=== PATIENT | male | born 1935 ===

== ENCOUNTER 2018-09-06 00:08 | Inpatient (IN) | payer BC, MEDICARE, OTHER ==
--- NOTE | 2018-09-06 00:14 | C.PDOC ---
History Of Present Illness Patient presents to the ER after vomiting bright red blood. Denies fever, chills, nausea, or trauma. Patient vomited 50cc of blood clots in the ER. Time Seen by Provider: 09/06/18 00:13 History Per: Patient History/Exam Limitations: no limitations Onset/Duration Of Symptoms: Hrs Current Symptoms Are (Timing): Still Present Severity: Moderate Pain Scale Rating Of: 4 Quality Of Discomfort: Unable To Describe Associated Symptoms: Vomiting (Bright red blood). denies: Nausea, Other (Fever, chills) Recent travel outside of the [place]: No Past Medical History Reviewed: Historical Data, Nursing Documentation, Vital Signs - Medical History PMH: Arthritis, HIV, HTN, Hypercholesterolemia, Hyperlipidemia, Rheumatoid Arthritis Denies: Chronic Kidney Disease Surgical History: CABG - [facility] Procedures VACCINATION NEC (07/27/14) Family History: States: No Known Family Hx - Social History Hx Tobacco Use: No Hx Alcohol Use: No Hx Substance Use: No - Immunization History Hx Tetanus Toxoid Vaccination: No (unknown) Hx Influenza Vaccination: Yes Hx Pneumococcal Vaccination: Yes Review Of Systems Constitutional: Negative for: Fever, Chills Cardiovascular: Negative for: Chest Pain, Palpitations Respiratory: Negative for: Cough, Shortness of Breath Gastrointestinal: Positive for: Vomiting (Bright red blood). Negative for: Nausea Neurological: Negative for: Weakness, Numbness Physical Exam - Physical Exam Appears: Non-toxic Skin: Warm, Dry Head: Normacephalic Oral Mucosa: Moist Throat: Other (Blood in the oropharynx) Neck: Trachea Midline, Supple Chest: Symmetrical, No Tenderness Cardiovascular: Rhythm Regular Respiratory: No Rales, No Rhonchi, No Wheezing Gastrointestinal/Abdominal: Soft, No Tenderness, Other (Tympanic to percussion) Rectal: Other (Bright red blood, nontender) Neurological/Psych: Oriented x3 ED Course And Treatment - Laboratory Results Result Diagrams: 09/06/18 01:14 09/06/18 01:14 ECG: Interpreted By Me, Viewed By Me ECG Rhythm: Sinus Tachycardia, L BBB Interpretation Of ECG: Nonspecific ST/T changes Rate From EC O2 Sat by Pulse Oximetry: 98 (room air) Pulse Ox Interpretation: Normal - Radiology CXR: Interpreted by Me, Viewed By Me CXR Interpretation: Yes: Cardiomegaly, Other (cabg). No: Infiltrates, Fracture Progress Note: EKG, blood work, urinalysis, CXR, and occult blood test ordered. Protonix, zofran, and IV fluids administered. Disposition Discussed With : Francisco Richards Comment: accepted the pt on his service and took over the care at 1:49 AM Doctor Will See Patient In The: Hospital Counseled Patient/Family Regarding: Studies Performed, Diagnosis - Disposition Disposition: HOSPITALIZED Disposition Time: 00:14 Condition: GUARDED - POA Present On Arrival: Poor Glycemic Control - Clinical Impression Clinical Impression: Gastrointestinal hemorrhage, Abdominal pain, Renal insufficiency - Scribe Statement The provider has reviewed the documentation as recorded by the Scribe Serge Falk All medical record entries made by the Scribe were at my direction and personally dictated by me. I have reviewed the chart and agree that the record accurately reflects my personal performance of the history, physical exam, medical decision making, and the department course for this patient. I have also personally directed, reviewed, and agree with the discharge instructions and disposition.
[2018-09-06 00:15] VITALS: BMI 33.2
[2018-09-06] MEDS ORDERED: Sodium Chloride 0.9% 1,000 ML IV ONE (00:15)
[2018-09-06] MEDS ORDERED: Pantoprazole 80 MG in Sodium Chloride 0.9% 100 ML IV STA (00:15)
[2018-09-06] MEDS ORDERED: Sodium Chloride 0.9% 1,000 ML ONE (00:28)
[2018-09-06 01:18] LABS: EOS # 0.6 K/uL (0.0-0.7); NEUT # 9.7 K/uL (1.8-7.0)
[2018-09-06 01:20] LABS: BASO % 0.3 % (0.0-2.0); EOS % 4.4 % (0.0-4.0); HEMOGLOBIN 11.6 g/dL (12.0-18.0); LYMPH # 3.3 K/uL (1.0-4.3); LYMPH % 22.5 % (20.0-40.0); MEAN CELL VOLUME 94.7 fL (80.0-94.0); MEAN CORPUSCULAR HEMOGLOBIN 30.6 pg (27.0-31.0); MEAN CORPUSCULAR HGB CONC 32.3 g/dL (33.0-37.0); MEAN PLATELET VOLUME 9.6 fL (7.2-11.7); MONO % 6.6 % (0.0-10.0); NEUT % 66.2 % (50.0-75.0); RBC 3.77 Mil/uL (4.40-5.90); RED CELL DISTRIBUTION WIDTH 14.9 % (11.5-14.5); WHITE BLOOD COUNT 14.7 K/uL (4.8-10.8)
[2018-09-06 01:47] LABS: INR 1.2; PARTIAL THROMBOPLASTIN TIME 26.7 SECONDS (21-34); PROTHROMBIN TIME 13.2 SECONDS (9.7-12.2)
[2018-09-06 02:06] LABS: ALB/GLOB RATIO 1.4 (1.0-2.1); ALBUMIN 3.3 g/dL (3.5-5.0); CALCIUM 8.3 mg/dl (8.6-10.4)
[2018-09-06] MEDS: Pantoprazole 80 MG in Sodium Chloride 0.9% 100 ML IVP SCH ×3 (02:10→21:06)
[2018-09-06] MEDS: Dextrose 5%/0.45% NS 1,000 ML IV SCH ×4 (02:20→21:06)
[2018-09-06] MEDS ORDERED: Iodixanol 320 MG/ML 100 ML BOTTLE IV ONE (02:44)
--- NOTE | 2018-09-06 09:34 | RAD ---
Date of service: 09/06/2018 HISTORY: GI Bleeding COMPARISON: None available. TECHNIQUE: 1 view obtained. FINDINGS: LUNGS: No active pulmonary disease. PLEURA: No significant pleural effusion identified, no pneumothorax apparent. CARDIOVASCULAR: Aortic atherosclerotic calcification present. Status post median sternotomy and CABG. No pulmonary vascular congestion. OSSEOUS STRUCTURES: No significant abnormalities. VISUALIZED UPPER ABDOMEN: Normal. OTHER FINDINGS: None. IMPRESSION: No active disease.
[2018-09-06] MEDS ORDERED: EPZICOM PO SCH (10:00)
[2018-09-06] MEDS ORDERED: Abacavir/Lamivudine 600 mg-300 mg Tab PO SCH (10:00)
[2018-09-06] MEDS: Metoprolol Succinate 50 mg XL Tab PO SCH ×2 (10:45→17:10)
[2018-09-06] MEDS ORDERED: Pantoprazole 80 MG in Sodium Chloride 0.9% 100 ML IVP SCH (11:00)
[2018-09-06 11:08] LABS: URINE BILIRUBIN NEGATIVE (NEGATIVE); URINE BLOOD NEGATIVE (NEGATIVE); URINE CLARITY Clear (Clear); URINE COLOR Straw (YELLOW); URINE GLUCOSE (UA) NORMAL (Normal); URINE LEUKOCYTE ESTERASE NEG Leu/uL (Negative); URINE PROTEIN NEGATIVE (NEGATIVE); URINE UROBILINOGEN NORMAL mg/dL (0.2-1.0)
--- NOTE | 2018-09-06 11:53 | CT ---
PROCEDURE: CT Abdomen and Pelvis without Oral or IV contrast. HISTORY: upper and lower gi bleed COMPARISON: Abdominal ultrasound performed 07/26/14 TECHNIQUE: Contiguous axial images of the abdomen and pelvis. No oral or IV contrast administered. Coronal and Sagittal reformats generated and reviewed. Radiation dose: Total exam DLP = 905.41 mGy-cm. This CT exam was performed using one or more of the following dose reduction techniques: Automated exposure control, adjustment of the mA and/or kV according to patient size, and/or use of iterative reconstruction technique. FINDINGS: There is limited evaluation of the solid organs without the administration of IV contrast. LOWER THORAX: Partially imaged subtle nodular/ground-glass infiltrate in the right middle lobe. LIVER: Unremarkable. GALLBLADDER AND BILE DUCTS: Cholelithiasis. PANCREAS: Atrophy. SPLEEN: Unremarkable. ADRENALS: Unremarkable. KIDNEYS AND URETERS: No hydronephrosis or obstructing renal calculus. Left lower pole renal cyst measures 2.8 cm. BLADDER: The urinary bladder appears unremarkable. REPRODUCTIVE: The prostate gland measures approximately 4.0 x 4.5 cm. APPENDIX: No secondary signs of acute appendicitis. BOWEL: The stomach is incompletely distended and contains high density material within its lumen, presumably blood products; correlate clinically. Lack of oral contrast limits evaluation for bowel pathology. The bowel loops appear within normal limits of caliber without evidence of intestinal obstruction. Diverticulosis without CT evidence of acute diverticulitis. PERITONEUM: Mild mesenteric inflammatory stranding, nonspecific. No significant free fluid. No definite free air. LYMPH NODES: No bulky lymphadenopathy identified. VASCULATURE: Atherosclerotic calcifications of the aorta and branches. No aortic aneurysm. BONES: Osseous demineralization. Degenerative changes. 8 mm anterolisthesis of L4 on L5. OTHER FINDINGS: None. IMPRESSION: The stomach is incompletely distended and contains high density material within its lumen, presumably blood products; correlate clinically. Cholelithiasis. Diverticulosis without CT evidence of acute diverticulitis. Enlarged prostate gland. Recommend correlation with PSA. Mild nonspecific mesenteric inflammatory stranding. 2.8 cm left renal cyst. Additional incidental findings as above. Preliminary impression was provided by [facility].
[2018-09-06 18:14] LABS: MEAN CELL VOLUME 92.8 fL (80.0-94.0); MEAN CORPUSCULAR HEMOGLOBIN 31.4 pg (27.0-31.0); MEAN CORPUSCULAR HGB CONC 33.8 g/dL (33.0-37.0); MEAN PLATELET VOLUME 9.7 fL (7.2-11.7); RBC 3.1 Mil/uL (4.40-5.90); RED CELL DISTRIBUTION WIDTH 14.7 % (11.5-14.5); WHITE BLOOD COUNT 9.8 K/uL (4.8-10.8)
[2018-09-06 18:23] LABS: HEMOGLOBIN 9.7 g/dL (12.0-18.0)
--- NOTE | 2018-09-06 22:14 | CP.PCM.CON ---
History of Present Illness - History of Present Illness History of Present Illness: Patient presents to the ER after vomiting bright red blood. Denies fever, chills, nausea, or trauma. Patient vomited 50cc of blood clots in the ER. Referred or ID eval for antiviral rx' denies fever or chills - Medical History PMH: Arthritis, HIV, HTN, Hypercholesterolemia, Hyperlipidemia, Rheumatoid Arthritis Denies: Chronic Kidney Disease Surgical History: CABG Review of Systems - Review of Systems All systems: reviewed and no additional remarkable complaints except - Constitutional Constitutional: As Per HPI - EENT Eyes: absent: As Per HPI, Blind Spots, Blurred Vision, Change in Vision, Decreased Night Vision, Diplopia, Discharge, Dry Eye, Exophthalmos, Floaters, Irritation, Itchy Eyes, Loss of Peripheral Vision, Pain, Photophobia, Requires Corrective Lenses, Sees Flashes, Spots in Vision, Tunnel Vision, Other Visual Disturbances, Loss of Vision, Other Ears: absent: As Per HPI, Decreased Hearing, Ear Discharge, Ear Pain, Tinnitus, Abnormal Hearing, Disequilibrium, Dizziness, Other Nose/Mouth/Throat: absent: As Per HPI, Epistaxis, Nasal Congestion, Nasal Discharge, Nasal Obstruction, Nasal Trauma, Nose Pain, Post Nasal Drip, Sinus Pain, Sinus Pressure, Bleeding Gums, Change in Voice, Dental Pain, Dry Mouth, Dysphagia, Halitosis, Hoarsness, Lip Swelling, Mouth Lesions, Mouth Pain, Odynophagia, Sore Throat, Throat Swelling, Tongue Swelling, Facial Pain, Neck Pain, Neck Mass, Other - Cardiovascular Cardiovascular: As Per HPI - Respiratory Respiratory: absent: As Per HPI, Cough, Dyspnea, Hemoptysis, Dyspnea on Exertion, Wheezing, Snoring, Stridor, Pain on Inspiration, Chest Congestion, Excessive Mucous Production, Change in Mucous Color, Pain with Coughing, Other - Gastrointestinal Gastrointestinal: As Per HPI - Genitourinary Genitourinary: absent: As Per HPI, Change in Urinary Stream, Difficulty Urinating, Dysuria, Flank Pain, Hematuria, Pyuria, Nocturia, Urinary Incontinence, Urinary Frequency, Urinary Hesitance, Urinary Urgency, Voiding Freq/Small Amts, Freq UTI, Hx Renal/Bladder Calculi, Hx /Renal Surgery, Bladder Distension, Other - Musculoskeletal Musculoskeletal: absent: As Per HPI, Abnormal Gait, Arthralgias, Atrophy, Back Pain, Deformity, Joint Swelling, Limited Range of Motion, Loss of Height, Muscle Cramps, Muscle Weakness, Myalgias, Neck Pain, Numbness, Radiating Pain into Limb, Stiffness, Tingling, Other - Neurological Neurological: absent: As Per HPI, Abnormal Gait, Abnormal Hearing, Abnormal Movements, Abnormal Speech, Behavioral Changes, Burning Sensations, Confusion, Convulsions, Disequilibrium, Dizziness, Numbness, Focal Weakness, Frequent Falls, Headaches, Lack of Coordination, Loss of Vision, Memory Loss, Paresthesias, Radicular Pain, Restless Legs, Sensory Deficit, Syncope, Tingling, Tremor, Vertigo, Weakness, Other Visual Disturbances, Other - Psychiatric Psychiatric: absent: As Per HPI, Abnormal Sleep Pattern, Anhedonia, Anxiety, Auditory Hallucinations, Behavioral Changes, Change in Appetite, Change in Libido, Confusion, Depression, Difficulty Concentrating, Hallucinations, Homicidal Ideation, Hopelessness, Irritability, Memory Loss, Mood Swings, Panic Attacks, Paranoia, Suicidal Ideation, Visual Hallucinations, Tactile Hallucinations, Other - Endocrine Endocrine: absent: As Per HPI, Change in Body Appearance, Change in Libido, Cold Intolorance, Deepening of Voice, Excessive Sweating, Fatigue, Flushing, Heat Intolorance, Increase in Ring/Shoe/Hat Size, Palpitations, Polydipsia, Polyphagia, Polyuria, Other - Hematologic/Lymphatic Hematologic: absent: As Per HPI, Easy Bleeding, Easy Bruising, Lymphadenopathy, Other Past Patient History - Past Medical History & Family History Past Medical History?: Yes - Past Social History Smoking Status: Never Smoked - CARDIAC Hx Hypercholesterolemia: Yes Hx Hypertension: Yes - PULMONARY Hx Respiratory Disorders: No - NEUROLOGICAL Hx Neurological Disorder: No - HEENT Hx Cataracts: Yes (b/l) - RENAL Hx Chronic Kidney Disease: No - ENDOCRINE/METABOLIC Hx Endocrine Disorders: No - HEMATOLOGICAL/ONCOLOGICAL Hx Human Immunodeficiency Virus (HIV): Yes - INTEGUMENTARY Hx Dermatological Problems: No - MUSCULOSKELETAL/RHEUMATOLOGICAL Hx Arthritis: Yes - GASTROINTESTINAL Hx Gastrointestinal Disorders: No - GENITOURINARY/GYNECOLOGICAL Hx Genitourinary Disorders: No - PSYCHIATRIC Hx Substance Use: No - SURGICAL HISTORY Hx Coronary Artery Bypass Graft: Yes - ANESTHESIA Hx Anesthesia: Yes Hx Anesthesia Reactions: No Hx Malignant Hyperthermia: No Meds Allergies/Adverse Reactions: Allergies Allergy/AdvReac Type Severity Reaction Status Date / Time No Known Allergies Allergy Verified 09/06/18 00:29 - Medications Medications: Current Medications Abacavir/Lamivudine (Epzicom) 1 tab PO DAILY [facility]; Protocol Last Admin: 09/06/18 10:45 Dose: 1 tab Fosamprenavir Calcium (Lexiva) 700 mg PO BID [facility]; Protocol Last Admin: 09/06/18 19:31 Dose: 700 mg Gabapentin (Neurontin) 100 mg PO TID [facility] Last Admin: 09/06/18 17:10 Dose: 100 mg Hydrochlorothiazide (Hydrodiuril) 25 mg PO DAILY [facility] Last Admin: 09/06/18 10:45 Dose: 25 mg Pantoprazole Sodium 80 mg/ (Sodium Chloride) 100 mls @ 10 mls/hr IVP .Q10H [facility] Last Admin: 09/06/18 21:06 Dose: 10 mls/hr Dextrose/Sodium Chloride (Dextrose 5%/0.45% Ns 1000 Ml) 1,000 mls @ 80 mls/hr IV .[id number] [facility] Last Admin: 09/06/18 21:06 Dose: 80 mls/hr Losartan Potassium (Cozaar) 100 mg PO DAILY [facility] Last Admin: 09/06/18 10:44 Dose: 100 mg Metoprolol Succinate (Toprol Xl) 50 mg PO BID [facility] Last Admin: 09/06/18 17:10 Dose: 50 mg Ritonavir (Norvir) 100 mg PO DAILY [facility]; Protocol Last Admin: 09/06/18 11:00 Dose: 100 mg Rosuvastatin Calcium (Crestor) 5 mg PO HS [facility] Last Admin: 09/06/18 21:04 Dose: 5 mg Physical Exam - Constitutional Appears: Non-toxic, No Acute Distress, Chronically Ill - Head Exam Head Exam: ATRAUMATIC, NORMAL INSPECTION, NORMOCEPHALIC - Eye Exam Eye Exam: EOMI, Normal appearance, PERRL Pupil Exam: NORMAL ACCOMODATION, PERRL - ENT Exam ENT Exam: Mucous Membranes Moist, Normal Exam - Neck Exam Neck exam: Positive for: Normal Inspection - Respiratory Exam Respiratory Exam: Clear to Auscultation Bilateral, NORMAL BREATHING PATTERN - Cardiovascular Exam Cardiovascular Exam: REGULAR RHYTHM - GI/Abdominal Exam GI & Abdominal Exam: Normal Bowel Sounds, Soft. absent: Tenderness - Rectal Exam Rectal Exam: Deferred - Exam Exam: NORMAL INSPECTION - Extremities Exam Extremities exam: Positive for: pedal edema - Back Exam Back exam: NORMAL INSPECTION - Neurological Exam Neurological exam: Alert, CN II-XII Intact, Normal Gait, Oriented x3, Reflexes Normal - Psychiatric Exam Psychiatric exam: Depressed - Skin Skin Exam: Dry, Intact, Normal Color, Warm Results - Vital Signs Recent Vital Signs: Last Vital Signs Temp 98.5 F 09/06/18 17:28 Pulse 81 09/06/18 19:55 Resp 18 09/06/18 17:28 BP 117/74 09/06/18 17:28 Pulse Ox 100 09/06/18 17:28 - Labs Result Diagrams: 09/06/18 17:38 09/06/18 01:14 Labs: Laboratory Results - last 24 hr 09/06/18 09/06/18 09/06/18 01:14 01:14 01:14 WBC 14.7 H RBC 3.77 L Hgb 11.6 L D Hct 35.7 MCV 94.7 H D MCH 30.6 MCHC 32.3 L RDW 14.9 H Plt Count 209 MPV 9.6 Neut % (Auto) 66.2 Lymph % (Auto) 22.5 [place] % (Auto) 6.6 Eos % (Auto) 4.4 H Baso % (Auto) 0.3 Neut # (Auto) 9.7 H Lymph # (Auto) 3.3 [place] # (Auto) 1.0 H Eos # (Auto) 0.6 Baso # (Auto) 0.0 PT 13.2 H INR 1.2 APTT 26.7 Sodium 140 Potassium 3.9 Chloride 109 H Carbon Dioxide 18 L Anion Gap 17 BUN 85 H Creatinine 2.1 H Est GFR ( Amer) 37 Est GFR (Non-Af Amer) 30 Random Glucose 223 H D Calcium 8.3 L Total Bilirubin 0.3 AST 27 ALT 28 Alkaline Phosphatase 69 Total Protein 5.7 L Albumin 3.3 L Globulin 2.3 Albumin/Globulin Ratio 1.4 Urine Color Urine Clarity Urine pH Ur Specific [place] Urine Protein Urine Glucose (UA) Urine Ketones Urine Blood Urine Nitrate Urine Bilirubin Urine Urobilinogen Ur Leukocyte Esterase Urine WBC (Auto) Urine RBC (Auto) Stool Occult Blood Blood Type Antibody Screen 09/06/18 09/06/18 09/06/18 01:34 01:42 10:49 WBC RBC Hgb Hct MCV MCH MCHC RDW Plt Count MPV Neut % (Auto) Lymph % (Auto) [place] % (Auto) Eos % (Auto) Baso % (Auto) Neut # (Auto) Lymph # (Auto) [place] # (Auto) Eos # (Auto) Baso # (Auto) PT INR APTT Sodium Potassium Chloride Carbon Dioxide Anion Gap BUN Creatinine Est GFR ( Amer) Est GFR (Non-Af Amer) Random Glucose Calcium Total Bilirubin AST ALT Alkaline Phosphatase Total Protein Albumin Globulin Albumin/Globulin Ratio Urine Color Straw Urine Clarity Clear Urine pH 5.0 Ur Specific [place] 1.012 Urine Protein Negative Urine Glucose (UA) Normal Urine Ketones Negative Urine Blood Negative Urine Nitrate Negative Urine Bilirubin Negative Urine Urobilinogen Normal Ur Leukocyte Esterase Neg Urine WBC (Auto) < 1 Urine RBC (Auto) < 1 Stool Occult Blood Positive H Blood Type AB POSITIVE Antibody Screen Negative 09/06/18 17:38 WBC 9.8 RBC 3.10 L Hgb 9.7 L Hct 28.7 L MCV 92.8 MCH 31.4 H MCHC 33.8 RDW 14.7 H Plt Count 181 MPV 9.7 Neut % (Auto) Lymph % (Auto) [place] % (Auto) Eos % (Auto) Baso % (Auto) Neut # (Auto) Lymph # (Auto) [place] # (Auto) Eos # (Auto) Baso # (Auto) PT INR APTT Sodium Potassium Chloride Carbon Dioxide Anion Gap BUN Creatinine Est GFR ( Amer) Est GFR (Non-Af Amer) Random Glucose Calcium Total Bilirubin AST ALT Alkaline Phosphatase Total Protein Albumin Globulin Albumin/Globulin Ratio Urine Color Urine Clarity Urine pH Ur Specific [place] Urine Protein Urine Glucose (UA) Urine Ketones Urine Blood Urine Nitrate Urine Bilirubin Urine Urobilinogen Ur Leukocyte Esterase Urine WBC (Auto) Urine RBC (Auto) Stool Occult Blood Blood Type Antibody Screen Assessment & Plan (1) HIV (human immunodeficiency virus infection) Status: Acute (2) Abdominal pain Status: Acute (3) Gastrointestinal hemorrhage Status: Acute (4) Renal insufficiency Status: Acute (5) Dehydration Status: Acute (6) Dizziness Status: Acute - Assessment and Plan (Free Text) Assessment: cont HAART rx check T cells
[2018-09-06 22:19] LABS: HEMOGLOBIN 9.6 g/dL (12.0-18.0); MEAN CELL VOLUME 94.4 fL (80.0-94.0); MEAN CORPUSCULAR HEMOGLOBIN 31.5 pg (27.0-31.0); MEAN CORPUSCULAR HGB CONC 33.3 g/dL (33.0-37.0); MEAN PLATELET VOLUME 9.4 fL (7.2-11.7); RBC 3.05 Mil/uL (4.40-5.90); RED CELL DISTRIBUTION WIDTH 15.2 % (11.5-14.5)
--- NOTE | 2018-09-06 23:50 | CP.PCM.HP ---
Present on Admission - Present on Admission Any Indicators Present on Admission: No Past Patient History - Past Medical History & Family History Past Medical History?: Yes - Past Social History Smoking Status: Never Smoked - CARDIAC Hx Hypercholesterolemia: Yes Hx Hypertension: Yes - PULMONARY Hx Respiratory Disorders: No - NEUROLOGICAL Hx Neurological Disorder: No - HEENT Hx Cataracts: Yes (b/l) - RENAL Hx Chronic Kidney Disease: No - ENDOCRINE/METABOLIC Hx Endocrine Disorders: No - HEMATOLOGICAL/ONCOLOGICAL Hx Human Immunodeficiency Virus (HIV): Yes - INTEGUMENTARY Hx Dermatological Problems: No - MUSCULOSKELETAL/RHEUMATOLOGICAL Hx Arthritis: Yes - GASTROINTESTINAL Hx Gastrointestinal Disorders: No - GENITOURINARY/GYNECOLOGICAL Hx Genitourinary Disorders: No - PSYCHIATRIC Hx Substance Use: No - SURGICAL HISTORY Hx Coronary Artery Bypass Graft: Yes - ANESTHESIA Hx Anesthesia: Yes Hx Anesthesia Reactions: No Hx Malignant Hyperthermia: No Meds Allergies/Adverse Reactions: Allergies Allergy/AdvReac Type Severity Reaction Status Date / Time No Known Allergies Allergy Verified 09/06/18 00:29 Results - Vital Signs Recent Vital Signs: Last Vital Signs Temp 98.5 F 09/06/18 17:28 Pulse 81 09/06/18 19:55 Resp 18 09/06/18 17:28 BP 117/74 09/06/18 17:28 Pulse Ox 100 09/06/18 17:28 - Labs Result Diagrams: 09/06/18 22:00 09/06/18 01:14 Labs: Laboratory Results - last 24 hr 09/06/18 09/06/18 09/06/18 01:14 01:14 01:14 WBC 14.7 H RBC 3.77 L Hgb 11.6 L D Hct 35.7 MCV 94.7 H D MCH 30.6 MCHC 32.3 L RDW 14.9 H Plt Count 209 MPV 9.6 Neut % (Auto) 66.2 Lymph % (Auto) 22.5 [place] % (Auto) 6.6 Eos % (Auto) 4.4 H Baso % (Auto) 0.3 Neut # (Auto) 9.7 H Lymph # (Auto) 3.3 [place] # (Auto) 1.0 H Eos # (Auto) 0.6 Baso # (Auto) 0.0 PT 13.2 H INR 1.2 APTT 26.7 Sodium 140 Potassium 3.9 Chloride 109 H Carbon Dioxide 18 L Anion Gap 17 BUN 85 H Creatinine 2.1 H Est GFR ( Amer) 37 Est GFR (Non-Af Amer) 30 Random Glucose 223 H D Calcium 8.3 L Total Bilirubin 0.3 AST 27 ALT 28 Alkaline Phosphatase 69 Total Protein 5.7 L Albumin 3.3 L Globulin 2.3 Albumin/Globulin Ratio 1.4 Urine Color Urine Clarity Urine pH Ur Specific [place] Urine Protein Urine Glucose (UA) Urine Ketones Urine Blood Urine Nitrate Urine Bilirubin Urine Urobilinogen Ur Leukocyte Esterase Urine WBC (Auto) Urine RBC (Auto) Stool Occult Blood Blood Type Antibody Screen 09/06/18 09/06/18 09/06/18 01:34 01:42 10:49 WBC RBC Hgb Hct MCV MCH MCHC RDW Plt Count MPV Neut % (Auto) Lymph % (Auto) [place] % (Auto) Eos % (Auto) Baso % (Auto) Neut # (Auto) Lymph # (Auto) [place] # (Auto) Eos # (Auto) Baso # (Auto) PT INR APTT Sodium Potassium Chloride Carbon Dioxide Anion Gap BUN Creatinine Est GFR ( Amer) Est GFR (Non-Af Amer) Random Glucose Calcium Total Bilirubin AST ALT Alkaline Phosphatase Total Protein Albumin Globulin Albumin/Globulin Ratio Urine Color Straw Urine Clarity Clear Urine pH 5.0 Ur Specific [place] 1.012 Urine Protein Negative Urine Glucose (UA) Normal Urine Ketones Negative Urine Blood Negative Urine Nitrate Negative Urine Bilirubin Negative Urine Urobilinogen Normal Ur Leukocyte Esterase Neg Urine WBC (Auto) < 1 Urine RBC (Auto) < 1 Stool Occult Blood Positive H Blood Type AB POSITIVE Antibody Screen Negative 09/06/18 09/06/18 17:38 22:00 WBC 9.8 11.0 H RBC 3.10 L 3.05 L Hgb 9.7 L 9.6 L Hct 28.7 L 28.8 L MCV 92.8 94.4 H MCH 31.4 H 31.5 H MCHC 33.8 33.3 RDW 14.7 H 15.2 H Plt Count 181 177 MPV 9.7 9.4 Neut % (Auto) Lymph % (Auto) [place] % (Auto) Eos % (Auto) Baso % (Auto) Neut # (Auto) Lymph # (Auto) [place] # (Auto) Eos # (Auto) Baso # (Auto) PT INR APTT Sodium Potassium Chloride Carbon Dioxide Anion Gap BUN Creatinine Est GFR ( Amer) Est GFR (Non-Af Amer) Random Glucose Calcium Total Bilirubin AST ALT Alkaline Phosphatase Total Protein Albumin Globulin Albumin/Globulin Ratio Urine Color Urine Clarity Urine pH Ur Specific [place] Urine Protein Urine Glucose (UA) Urine Ketones Urine Blood Urine Nitrate Urine Bilirubin Urine Urobilinogen Ur Leukocyte Esterase Urine WBC (Auto) Urine RBC (Auto) Stool Occult Blood Blood Type Antibody Screen
[2018-09-07] MEDS: Dextrose 5%/0.45% NS 1,000 ML IV SCH ×3 (04:29→15:56)
[2018-09-07] MEDS: Pantoprazole 80 MG in Sodium Chloride 0.9% 100 ML IVP SCH ×2 (08:20→19:24)
[2018-09-07] MEDS: Metoprolol Succinate 50 mg XL Tab PO SCH ×2 (11:00→18:31)
[2018-09-07] MEDS ORDERED: Propofol 10 mg/ml Inj (20 ML) ONE (11:04)
--- NOTE | 2018-09-07 11:11 | HP ---
CHIEF COMPLAINT: Vomiting blood with generalized weakness. HISTORY OF PRESENT ILLNESS: This is an 83-year-old male with history of acquired immunodeficiency syndrome, on HAART therapy who is compliant with his diet, medication, and followup. The patient is well known to me with history of coronary artery disease, diabetes, hypertension, hyperlipidemia, and osteoarthritis, who is compliant with his diet, medication, and followup. The patient is a poor historian. He presented to emergency room with vomiting bright red blood, epigastric pain, nausea, vomiting, generalized weakness, diaphoresis, and dizziness. The patient denies any nonsteroidal antiinflammatory abuse. The patient has bilateral knee pain, hip pain. He denies any tingling, numbness, or paraesthesia. He denies any polyuria, polydipsia, polyphagia. He denies any hematuria or pyuria. He denies any sneezing, itchy eyes, itchy nose. There is no history of cough or sore throat. PAST MEDICAL HISTORY: Diabetes, hypertension, hyperlipidemia, coronary artery disease. SOCIAL HISTORY: Nonsmoker. Non-ETOH user. CURRENT MEDICATIONS: He is on ritonavir, Pravachol, Toprol-XL, Diovan, gabapentin, , Uloric, Pepcid, colchicine, Norvasc. PHYSICAL EXAMINATION: GENERAL: An elderly male. He is not in distress. He is complaining of epigastric pain with nausea and vomiting. VITAL SIGNS: Blood pressure 170/74, pulse 92, respiratory rate 16, and temperature 98.5. When he moves, his heart rate goes up. SKIN: Senile turgor. No bruises. No purpura. No petechia. HEENT: Atraumatic, normocephalic. Negative pallor. Negative jaundice. Extraocular movements are intact. NECK: Supple. No JVD. No lymph nodes. No thyromegaly. No carotid bruit. CHEST WALL: Bilateral symmetrical expansion noted. LUNGS: Clear. No rales. No rhonchi. CARDIOVASCULAR SYSTEM: PMI not localized. S1, S2, regular. ABDOMEN: Soft, nontender. Bowel sounds are positive. RECTAL: Positive occult blood. EXTREMITIES: No clubbing, cyanosis, or edema. CENTRAL NERVOUS SYSTEM: Awake, alert, oriented x3. Cranial nerves II-XII are normal. Power 5/5 x4. Plantars are downgoing. ASSESSMENT: 1. Gastrointestinal bleed, rule out gastritis versus peptic ulcer disease versus colitis versus colon polyps. 2. Acquired immunodeficiency syndrome. 3. Hypertension. 4. Diabetes mellitus. PLAN: Admit. Detailed orders are written. Seen and examined. Francisco Richards MD
[2018-09-07] MEDS ORDERED: Peg-Electrolyte Oral Soln 4L (Golytely) PO ONE (13:00)
[2018-09-07 13:56] LABS: HEMOGLOBIN 8.6 g/dL (12.0-18.0); MEAN CELL VOLUME 94.4 fL (80.0-94.0); MEAN CORPUSCULAR HEMOGLOBIN 32.3 pg (27.0-31.0); MEAN CORPUSCULAR HGB CONC 34.2 g/dL (33.0-37.0); MEAN PLATELET VOLUME 9.6 fL (7.2-11.7); RBC 2.67 Mil/uL (4.40-5.90); RED CELL DISTRIBUTION WIDTH 15.1 % (11.5-14.5); WHITE BLOOD COUNT 9.8 K/uL (4.8-10.8)
[2018-09-07] MEDS ORDERED: Bisacodyl 5mg EC Tab PO ONE (17:00)
[2018-09-07] MEDS ORDERED: Lactated Ringer's 1,000 ML IV SCH (18:15)
--- NOTE | 2018-09-07 18:35 | CP.PCM.CON ---
<Richie Mota - Last Filed: 09/07/18 18:28> History of Present Illness - History of Present Illness History of Present Illness: Richie Mota PGY1 Consult note for Dr. Wills Patient is an 83yo M with PMH CAD, HIV, HTN, Hyperlipidemia, Arthritis presenting with hemoptysis. ICU consulted for GI bleed. Patient reports eating outside food on tuesday night and subsequently experiencing nausea and 3 episodes of bloody vomit that he described as bright red. He denies prior hi story of this. He denies blood in the stool prior to coming to hospital. He endorses history of acid reflux and abdominal pain. He denies chest pain, shortness of breath, fever, chills, sick contacts or recent travel. He reports some dizziness at this time. He currently denies any nausea or vomiting. EGD was performed today, showing gastritis. Patient had large bowel movement with black stool. SxH: bypass, R knee SocH: denies etoh, tobacco, or recreational drug use Allergies: NKDA Meds: as per EMR PMD: Maurice Review of Systems - Review of Systems Review of Systems: 12 point ROS completed and negative other than what is stated in HPI Past Patient History - Past Medical History & Family History Past Medical History?: Yes - Past Social History Smoking Status: Never Smoked - CARDIAC Hx Hypercholesterolemia: Yes Hx Hypertension: Yes - PULMONARY Hx Respiratory Disorders: No - NEUROLOGICAL Hx Neurological Disorder: No - HEENT Hx Cataracts: Yes (b/l) - RENAL Hx Chronic Kidney Disease: No - ENDOCRINE/METABOLIC Hx Endocrine Disorders: No - HEMATOLOGICAL/ONCOLOGICAL Hx Human Immunodeficiency Virus (HIV): Yes - INTEGUMENTARY Hx Dermatological Problems: No - MUSCULOSKELETAL/RHEUMATOLOGICAL Hx Arthritis: Yes - GASTROINTESTINAL Hx Gastrointestinal Disorders: No - GENITOURINARY/GYNECOLOGICAL Hx Genitourinary Disorders: No - PSYCHIATRIC Hx Substance Use: No - SURGICAL HISTORY Hx Coronary Artery Bypass Graft: Yes - ANESTHESIA Hx Anesthesia: Yes Hx Anesthesia Reactions: No Hx Malignant Hyperthermia: No Meds Allergies/Adverse Reactions: Allergies Allergy/AdvReac Type Severity Reaction Status Date / Time No Known Allergies Allergy Verified 09/06/18 00:29 - Medications Medications: Current Medications Abacavir Sulfate (Ziagen) 600 mg PO DAILY [facility]; Protocol Fosamprenavir Calcium (Lexiva) 700 mg PO BID [facility]; Protocol Last Admin: 09/07/18 11:00 Dose: Not Given Gabapentin (Neurontin) 100 mg PO TID [facility] Last Admin: 09/07/18 13:52 Dose: 100 mg Hydrochlorothiazide (Hydrodiuril) 25 mg PO DAILY [facility] Last Admin: 09/07/18 11:00 Dose: Not Given Lactated Ringer's (Lactated Ringer's) 1,000 mls @ 100 mls/hr IV .Q10H [facility] Lamivudine (Epivir) 100 mg PO DAILY [facility]; Protocol Losartan Potassium (Cozaar) 100 mg PO DAILY [facility] Last Admin: 09/07/18 11:00 Dose: Not Given Metoclopramide HCl (Reglan) 5 mg IVP Q6H [facility] Stop: 09/11/18 12:01 Last Admin: 09/07/18 13:00 Dose: 5 mg Metoprolol Succinate (Toprol Xl) 50 mg PO BID [facility] Last Admin: 09/07/18 11:00 Dose: Not Given Pantoprazole Sodium (Protonix Inj) 40 mg IVP Q12H [facility] Ritonavir (Norvir) 100 mg PO DAILY [facility]; Protocol Last Admin: 09/07/18 11:00 Dose: Not Given Rosuvastatin Calcium (Crestor) 5 mg PO HS [facility] Last Admin: 09/06/18 21:04 Dose: 5 mg Physical Exam - Constitutional Appears: Well, No Acute Distress - Head Exam Head Exam: ATRAUMATIC, NORMOCEPHALIC - Eye Exam Eye Exam: EOMI, Normal appearance, PERRL Pupil Exam: NORMAL ACCOMODATION - ENT Exam ENT Exam: Mucous Membranes Moist - Neck Exam Neck exam: Positive for: Normal Inspection - Respiratory Exam Respiratory Exam: Clear to Auscultation Bilateral, NORMAL BREATHING PATTERN. absent: Rales, Rhonchi, Wheezes - Cardiovascular Exam Cardiovascular Exam: REGULAR RHYTHM, +S1, +S2. absent: Gallop, Rubs, Systolic Murmur - GI/Abdominal Exam GI & Abdominal Exam: Normal Bowel Sounds, Soft. absent: Distended, Tenderness - Extremities Exam Extremities exam: Positive for: normal inspection. Negative for: pedal edema - Back Exam Back exam: NORMAL INSPECTION - Neurological Exam Neurological exam: Alert, CN II-XII Intact, Normal Gait, Oriented x3, Reflexes Normal - Psychiatric Exam Psychiatric exam: Normal Affect, Normal Mood - Skin Skin Exam: Intact, Normal Color Results - Vital Signs Recent Vital Signs: Last Vital Signs Temp 97.7 F 09/07/18 18:14 Pulse 77 09/07/18 18:20 Resp 9 L 09/07/18 18:20 BP 138/57 L 09/07/18 18:14 Pulse Ox 98 09/07/18 18:20 - Labs Result Diagrams: 09/07/18 13:51 09/06/18 01:14 Labs: Laboratory Results - last 24 hr 09/06/18 09/06/18 09/07/18 01:42 22:00 06:35 WBC 11.0 H RBC 3.05 L Hgb 9.6 L Hct 28.8 L MCV 94.4 H MCH 31.5 H MCHC 33.3 RDW 15.2 H Plt Count 177 MPV 9.4 POC Glucose (mg/dL) 134 H HIV 1&2 Antibody Screen Blood Type AB POSITIVE Blood Type Confirm AB POSITIVE Antibody Screen Negative 09/07/18 09/07/18 08:05 13:51 WBC 9.8 RBC 2.67 L Hgb 8.6 L Hct 25.2 L MCV 94.4 H MCH 32.3 H MCHC 34.2 RDW 15.1 H Plt Count 165 MPV 9.6 POC Glucose (mg/dL) HIV 1&2 Antibody Screen Reactive Blood Type Blood Type Confirm Antibody Screen Assessment & Plan - Assessment and Plan (Free Text) Assessment: Patient is an 83yo M with PMH CAD, HIV, HTN, Hyperlipidemia, Arthritis presenting with hemoptysis. ICU consulted for GI bleed. EGD performed 09/06 showing gastritis. Colonoscopy scheduled for 09/07, patient currently on bowel prep. Plan: Neuro: - AAOx3 - GSC 15 - no focal deficits Cardiovascular: - h/o HTN, HLD - maintain normotension - toprol XL, cozaar, HCTZ - crestor Resp: - maintain SpO2 >92% GI: - black tarry stools - EGD 09/06: active bleeding not visualized, gastritis - Colonoscopy for tomorrow - to transfuse 2u PRBCs - protonix IV q12h - LR @100cc/hr Heme: - Hb 8.6 - to transfuse 2u PRBCs - H/H q4h ID: - h/o HIV - HAART as per ID Endo: - maintain euglycemia PPX: GI: protonix q12h DVT: SCDs, no chemical anticoag at this time due to active GI bleed NPO past midnight Dispo: colonoscopy for tomorrow, monitor H/H and vitals Case discussed with Dr. Wills <Julio Wills - Last Filed: 09/07/18 18:49> Meds - Medications Medications: Current Medications Abacavir Sulfate (Ziagen) 600 mg PO DAILY [facility]; Protocol Fosamprenavir Calcium (Lexiva) 700 mg PO BID [facility]; Protocol Last Admin: 09/07/18 18:30 Dose: 700 mg Gabapentin (Neurontin) 100 mg PO TID [facility] Last Admin: 09/07/18 18:30 Dose: 100 mg Hydrochlorothiazide (Hydrodiuril) 25 mg PO DAILY [facility] Last Admin: 09/07/18 11:00 Dose: Not Given Lactated Ringer's (Lactated Ringer's) 1,000 mls @ 100 mls/hr IV .Q10H [facility] Lamivudine (Epivir) 100 mg PO DAILY [facility]; Protocol Losartan Potassium (Cozaar) 100 mg PO DAILY [facility] Last Admin: 09/07/18 11:00 Dose: Not Given Metoclopramide HCl (Reglan) 5 mg IVP Q6H [facility] Stop: 09/11/18 12:01 Last Admin: 09/07/18 18:32 Dose: 5 mg Metoprolol Succinate (Toprol Xl) 50 mg PO BID [facility] Last Admin: 09/07/18 18:31 Dose: 50 mg Pantoprazole Sodium (Protonix Inj) 40 mg IVP Q12H [facility] Last Admin: 09/07/18 18:34 Dose: 40 mg Ritonavir (Norvir) 100 mg PO DAILY [facility]; Protocol Last Admin: 09/07/18 11:00 Dose: Not Given Rosuvastatin Calcium (Crestor) 5 mg PO HS [facility] Last Admin: 09/06/18 21:04 Dose: 5 mg Results - Vital Signs Recent Vital Signs: Last Vital Signs Temp 97.7 F 09/07/18 18:14 Pulse 77 09/07/18 18:20 Resp 9 L 09/07/18 18:20 BP 138/57 L 09/07/18 18:14 Pulse Ox 98 09/07/18 18:20 - Labs Result Diagrams: 09/07/18 13:51 09/06/18 01:14 Labs: Laboratory Results - last 24 hr 09/06/18 09/06/18 09/07/18 01:42 22:00 06:35 WBC 11.0 H RBC 3.05 L Hgb 9.6 L Hct 28.8 L MCV 94.4 H MCH 31.5 H MCHC 33.3 RDW 15.2 H Plt Count 177 MPV 9.4 POC Glucose (mg/dL) 134 H HIV 1&2 Antibody Screen Blood Type AB POSITIVE Blood Type Confirm AB POSITIVE Antibody Screen Negative 09/07/18 09/07/18 08:05 13:51 WBC 9.8 RBC 2.67 L Hgb 8.6 L Hct 25.2 L MCV 94.4 H MCH 32.3 H MCHC 34.2 RDW 15.1 H Plt Count 165 MPV 9.6 POC Glucose (mg/dL) HIV 1&2 Antibody Screen Reactive Blood Type Blood Type Confirm Antibody Screen Attending/Attestation - Attestation I have personally seen and examined this patient.: Yes I have fully participated in the care of the patient.: Yes I have reviewed all pertinent clinical information: Yes Notes (Text): 09/07/18 18:47 I have seen and examined the patient. Medical records, lab studies, and imaging were reviewed by me and a management plan was formulated on multidisciplinary rounds with resident Dr. Mota. I agree with their documented assessment and plan. Patient is having melanotic stool. Possible upper GI bleed, EGD only found gastritis. Followup colonoscopy tomorrow. Protonix IV q12h. No need for transfusion currently as hemodynamically stable. Monitoring closely. LR@100 for volume resuscitation. Critical Care Time 35 minutes. Multi-disciplinary rounds were performed with house staff, nursing, speech therapy, respiratory therapy, pharmacy and nutrition with integrated input from the primary team/attending and other consulting services. The documented time is cumulative and includes review of patient data/exams/labs/chart review and examination of the patient on rounds and throughout the day; time is exclusive of any procedures or teaching time.
--- NOTE | 2018-09-07 18:37 | CP.PCM.PN ---
Subjective - Date & Time of Evaluation Date of Evaluation: 09/07/18 Time of Evaluation: 09:00 - Subjective Subjective: seen on rounds patient examined chart reviewed orders signed Objective - Vital Signs/Intake and Output Vital Signs (last 24 hours): Temp Pulse Resp BP Pulse Ox 97.7 F 77 9 L 138/57 L 98 09/07/18 18:14 09/07/18 18:20 09/07/18 18:20 09/07/18 18:14 09/07/18 18:20 Intake and Output: 09/07/18 09/07/18 06:59 18:59 Intake Total 750 980 Output Total 500 550 Balance 250 430 - Medications Medications: Current Medications Abacavir Sulfate (Ziagen) 600 mg PO DAILY [facility]; Protocol Fosamprenavir Calcium (Lexiva) 700 mg PO BID [facility]; Protocol Last Admin: 09/07/18 18:30 Dose: 700 mg Gabapentin (Neurontin) 100 mg PO TID [facility] Last Admin: 09/07/18 18:30 Dose: 100 mg Hydrochlorothiazide (Hydrodiuril) 25 mg PO DAILY [facility] Last Admin: 09/07/18 11:00 Dose: Not Given Lactated Ringer's (Lactated Ringer's) 1,000 mls @ 100 mls/hr IV .Q10H [facility] Lamivudine (Epivir) 100 mg PO DAILY [facility]; Protocol Losartan Potassium (Cozaar) 100 mg PO DAILY [facility] Last Admin: 09/07/18 11:00 Dose: Not Given Metoclopramide HCl (Reglan) 5 mg IVP Q6H [facility] Stop: 09/11/18 12:01 Last Admin: 09/07/18 18:32 Dose: 5 mg Metoprolol Succinate (Toprol Xl) 50 mg PO BID [facility] Last Admin: 09/07/18 18:31 Dose: 50 mg Pantoprazole Sodium (Protonix Inj) 40 mg IVP Q12H [facility] Last Admin: 09/07/18 18:34 Dose: 40 mg Ritonavir (Norvir) 100 mg PO DAILY [facility]; Protocol Last Admin: 09/07/18 11:00 Dose: Not Given Rosuvastatin Calcium (Crestor) 5 mg PO HS [facility] Last Admin: 09/06/18 21:04 Dose: 5 mg - Labs Labs: 09/07/18 13:51 09/06/18 01:14 PT 13.2 SECONDS (9.7-12.2) H 09/06/18 01:14 INR 1.2 09/06/18 01:14 APTT 26.7 SECONDS (21-34) 09/06/18 01:14 - Constitutional Appears: Non-toxic, No Acute Distress, Chronically Ill - Head Exam Head Exam: ATRAUMATIC, NORMAL INSPECTION, NORMOCEPHALIC - Eye Exam Eye Exam: EOMI, Normal appearance, PERRL Pupil Exam: NORMAL ACCOMODATION, PERRL - ENT Exam ENT Exam: Mucous Membranes Moist, Normal Exam - Neck Exam Neck Exam: Full ROM, Normal Inspection. absent: Lymphadenopathy - Respiratory Exam Respiratory Exam: Clear to Ausculation Bilateral, NORMAL BREATHING PATTERN - Cardiovascular Exam Cardiovascular Exam: REGULAR RHYTHM, +S1, +S2. absent: Murmur - GI/Abdominal Exam GI & Abdominal Exam: Distended, Soft, Tenderness - Rectal Exam Rectal Exam: Deferred - Exam Exam: NORMAL INSPECTION - Extremities Exam Extremities Exam: Full ROM, Normal Capillary Refill, Normal Inspection. absent: Joint Swelling, Pedal Edema - Back Exam Back Exam: NORMAL INSPECTION - Neurological Exam Neurological Exam: Alert, Awake, CN II-XII Intact, Oriented x3. absent: Normal Gait - Psychiatric Exam Psychiatric exam: Normal Affect, Normal Mood - Skin Skin Exam: Dry, Intact, Normal Color, Warm Assessment and Plan (1) HIV (human immunodeficiency virus infection) Status: Acute (2) Abdominal pain Status: Acute (3) Gastrointestinal hemorrhage Status: Acute (4) Renal insufficiency Status: Acute (5) Dehydration Status: Acute (6) Dizziness Status: Acute - Assessment and Plan (Free Text) Assessment: cont rx as ordered GI and surgery on board
--- NOTE | 2018-09-07 19:16 | CP.PCM.CON ---
History of Present Illness - History of Present Illness History of Present Illness: General surgery consult note for Dr. Ammy Lundberg, PGY-2 Pt seen/examined at bedside with Mert Liu #[id number] 83M w/PMH sig for multiple co-morbidities as listed below consulted for GI bleed. Pt reports that he was at home, at approximately 9am on day of evaluation pt reports having of water, then going to the bathroom and feeling nauseous, then having one episode of bright red emesis with clots. Admits to dizziness, weakness, rhinorrheea, mild lower abdominal pain, chronic low back pain. Denies F & C, CP, SOB, hematuria, melena, unintentional weight loss, changes in stool color or caliber, dysuria, sore throat. Reports he has never had a colonoscopy. Pt currently getting blood at bedside. EGD done with findings of gastritis. PMH: HIV, HLD, HTN, rheumatoid arthritis, GERD, chronic low back pain PSH: CABG All: Seasonal SH: Denies ETOH, tobacco or illicit drug use FH: Denies FH of cancer PMD: Dr. Zamora in [place] Review of Systems - Review of Systems All systems: reviewed and no additional remarkable complaints except - Constitutional Constitutional: Weakness. absent: Chills, Fever - EENT Ears: Dizziness Nose/Mouth/Throat: absent: Sore Throat - Cardiovascular Cardiovascular: absent: Chest Pain - Respiratory Respiratory: absent: Cough - Gastrointestinal Gastrointestinal: Abdominal Pain, Hematemesis, Nausea, Vomiting. absent: Change in Bowel Habits, Change in Stool Character, Constipation, Diarrhea, Hematochezia, Loose Stools, Melena - Genitourinary Genitourinary: absent: Change in Urinary Stream, Hematuria - Musculoskeletal Musculoskeletal: Back Pain (chronic) - Integumentary Integumentary: absent: New Lesions - Neurological Neurological: Dizziness, Weakness Past Patient History - Past Medical History & Family History Past Medical History?: Yes - Past Social History Smoking Status: Never Smoked - CARDIAC Hx Hypercholesterolemia: Yes Hx Hypertension: Yes - PULMONARY Hx Respiratory Disorders: No - NEUROLOGICAL Hx Neurological Disorder: No - HEENT Hx Cataracts: Yes (b/l) - RENAL Hx Chronic Kidney Disease: No - ENDOCRINE/METABOLIC Hx Endocrine Disorders: No - HEMATOLOGICAL/ONCOLOGICAL Hx Human Immunodeficiency Virus (HIV): Yes - INTEGUMENTARY Hx Dermatological Problems: No - MUSCULOSKELETAL/RHEUMATOLOGICAL Hx Arthritis: Yes - GASTROINTESTINAL Hx Gastrointestinal Disorders: No - GENITOURINARY/GYNECOLOGICAL Hx Genitourinary Disorders: No - PSYCHIATRIC Hx Substance Use: No - SURGICAL HISTORY Hx Coronary Artery Bypass Graft: Yes - ANESTHESIA Hx Anesthesia: Yes Hx Anesthesia Reactions: No Hx Malignant Hyperthermia: No Meds Allergies/Adverse Reactions: Allergies Allergy/AdvReac Type Severity Reaction Status Date / Time No Known Allergies Allergy Verified 09/06/18 00:29 - Medications Medications: Current Medications Abacavir Sulfate (Ziagen) 600 mg PO DAILY [facility]; Protocol Fosamprenavir Calcium (Lexiva) 700 mg PO BID [facility]; Protocol Last Admin: 09/07/18 18:30 Dose: 700 mg Gabapentin (Neurontin) 100 mg PO TID [facility] Last Admin: 09/07/18 18:30 Dose: 100 mg Hydrochlorothiazide (Hydrodiuril) 25 mg PO DAILY [facility] Last Admin: 09/07/18 11:00 Dose: Not Given Lactated Ringer's (Lactated Ringer's) 1,000 mls @ 100 mls/hr IV .Q10H [facility] Lamivudine (Epivir) 100 mg PO DAILY [facility]; Protocol Losartan Potassium (Cozaar) 100 mg PO DAILY [facility] Last Admin: 09/07/18 11:00 Dose: Not Given Metoclopramide HCl (Reglan) 5 mg IVP Q6H [facility] Stop: 09/11/18 12:01 Last Admin: 09/07/18 18:32 Dose: 5 mg Metoprolol Succinate (Toprol Xl) 50 mg PO BID [facility] Last Admin: 09/07/18 18:31 Dose: 50 mg Pantoprazole Sodium (Protonix Inj) 40 mg IVP Q12H [facility] Last Admin: 09/07/18 18:34 Dose: 40 mg Ritonavir (Norvir) 100 mg PO DAILY [facility]; Protocol Last Admin: 09/07/18 11:00 Dose: Not Given Rosuvastatin Calcium (Crestor) 5 mg PO HS [facility] Last Admin: 09/06/18 21:04 Dose: 5 mg Physical Exam - Constitutional Appears: Non-toxic, No Acute Distress - Head Exam Head Exam: ATRAUMATIC, NORMAL INSPECTION, NORMOCEPHALIC - Eye Exam Eye Exam: EOMI, Normal appearance - ENT Exam ENT Exam: Mucous Membranes Moist, Normal Exam - Neck Exam Neck exam: Positive for: Full Rom - Respiratory Exam Respiratory Exam: Clear to Auscultation Bilateral, NORMAL BREATHING PATTERN. absent: Rales, Rhonchi, Wheezes, Respiratory Distress Additional comments: well healed midline chest surgical incision and two upper abdominal linear scars - Cardiovascular Exam Cardiovascular Exam: REGULAR RHYTHM, +S1, +S2 - GI/Abdominal Exam GI & Abdominal Exam: Normal Bowel Sounds, Soft. absent: Distended (obese), Firm, Hernia, Tenderness - Rectal Exam Rectal Exam: Black Stool - Extremities Exam Extremities exam: Positive for: normal inspection - Neurological Exam Neurological exam: Alert, CN II-XII Intact, Oriented x3 - Psychiatric Exam Psychiatric exam: Normal Affect, Normal Mood - Skin Skin Exam: Dry, Intact, Normal Color, Warm Results - Vital Signs Recent Vital Signs: Last Vital Signs Temp 97.7 F 09/07/18 18:14 Pulse 90 09/07/18 18:50 Resp 13 09/07/18 18:50 BP 121/56 L 09/07/18 18:43 Pulse Ox 97 09/07/18 18:50 - Labs Result Diagrams: 09/07/18 13:51 09/06/18 01:14 Labs: Laboratory Results - last 24 hr 09/06/18 09/06/18 09/07/18 01:42 22:00 06:35 WBC 11.0 H RBC 3.05 L Hgb 9.6 L Hct 28.8 L MCV 94.4 H MCH 31.5 H MCHC 33.3 RDW 15.2 H Plt Count 177 MPV 9.4 POC Glucose (mg/dL) 134 H HIV 1&2 Antibody Screen Blood Type AB POSITIVE Blood Type Confirm AB POSITIVE Antibody Screen Negative 09/07/18 09/07/18 08:05 13:51 WBC 9.8 RBC 2.67 L Hgb 8.6 L Hct 25.2 L MCV 94.4 H MCH 32.3 H MCHC 34.2 RDW 15.1 H Plt Count 165 MPV 9.6 POC Glucose (mg/dL) HIV 1&2 Antibody Screen Reactive Blood Type Blood Type Confirm Antibody Screen Assessment & Plan - Assessment and Plan (Free Text) Assessment: 83M w/gi bleed Plan: Recommend CTA for vascular evaluation Follow up colonoscopy transfuse blood PRN Serial H/H Further recommends pending imaging evaluation & colonoscopy findings DW Dr. Lynn Lundberg, PGY-2 - Date & Time Date: 09/07/18 Time: 19:19
[2018-09-07 21:40] LABS: CALCIUM 9.1 mg/dl (8.6-10.4)
--- NOTE | 2018-09-07 23:38 | CP.PCM.PN ---
Subjective - Date & Time of Evaluation Date of Evaluation: 09/07/18 Time of Evaluation: 08:40 - Subjective Subjective: dict Objective - Vital Signs/Intake and Output Vital Signs (last 24 hours): Temp Pulse Resp BP Pulse Ox 97.4 F L 86 14 142/77 98 09/07/18 22:02 09/07/18 23:10 09/07/18 23:10 09/07/18 23:02 09/07/18 23:10 Intake and Output: 09/07/18 09/08/18 18:59 06:59 Intake Total 1080 1150 Output Total 550 150 Balance 530 1000 - Medications Medications: Current Medications Abacavir Sulfate (Ziagen) 600 mg PO DAILY [facility]; Protocol Fosamprenavir Calcium (Lexiva) 700 mg PO BID [facility]; Protocol Last Admin: 09/07/18 18:30 Dose: 700 mg Gabapentin (Neurontin) 100 mg PO TID [facility] Last Admin: 09/07/18 18:30 Dose: 100 mg Hydrochlorothiazide (Hydrodiuril) 25 mg PO DAILY [facility] Last Admin: 09/07/18 11:00 Dose: Not Given Sodium Bicarbonate 150 meq/ (Dextrose) 1,150 mls @ 75 mls/hr IV .[id number] [facility] Desmopressin Acetate 21 mcg/ (Sodium Chloride) 55.25 mls @ 100 mls/hr IV ONCE ONE Stop: 09/07/18 23:44 Lamivudine (Epivir) 100 mg PO DAILY [facility]; Protocol Metoclopramide HCl (Reglan) 5 mg IVP Q6H [facility] Stop: 09/11/18 12:01 Last Admin: 09/07/18 23:23 Dose: 5 mg Metoprolol Succinate (Toprol Xl) 50 mg PO BID [facility] Last Admin: 09/07/18 18:31 Dose: 50 mg Pantoprazole Sodium (Protonix Inj) 40 mg IVP Q12H [facility] Last Admin: 09/07/18 18:34 Dose: 40 mg Ritonavir (Norvir) 100 mg PO DAILY [facility]; Protocol Last Admin: 09/07/18 11:00 Dose: Not Given Rosuvastatin Calcium (Crestor) 5 mg PO HS [facility] Last Admin: 09/07/18 21:36 Dose: 5 mg - Labs Labs: 09/07/18 13:51 09/07/18 21:12 PT 13.2 SECONDS (9.7-12.2) H 09/06/18 01:14 INR 1.2 09/06/18 01:14 APTT 26.7 SECONDS (21-34) 09/06/18 01:14
[2018-09-08] MEDS ORDERED: Sodium Bicarbonate 8.4% 150 MEQ in Dextrose 5% In Water 1,000 ML IV SCH (01:00)
--- NOTE | 2018-09-08 04:58 | PN ---
DATE: 09/07/2018 SUBJECTIVE: The patient was having melenic stool in large quantity, and he could not control his bowel movement. The patient was transferred to ICU for the risk of massive bleeding. PHYSICAL EXAMINATION: VITAL SIGNS: Blood pressure 142/77, pulse 90, respiratory rate 16, temperature 98. LUNGS: Clear. CARDIOVASCULAR SYSTEM: S1 and S2, regular. ABDOMEN: Soft, nontender. Bowel sounds are positive. CENTRAL NERVOUS SYSTEM: Awake, alert, oriented x3. DIAGNOSTIC DATA: Endoscopy that was done yesterday showed medium-sized hiatal hernia. Esophageal exam was normal and a 4-mm nonbleeding erosion in the gastric fundus. Other than that, there was no active bleeding spot. ASSESSMENT: 1. Massive gastrointestinal bleed, most likely looks like due to melenic stool. We will transfuse the patient 2 units of packed red blood cells and transfer the patient down to intensive care unit. 2. Anemia of gastrointestinal bleed. 3. He is on highly active antiretroviral therapy. PLAN: Continue current medications. Monitor the patient. Francisco Richards MD
[2018-09-08 06:10] LABS: BASO % 0.2 % (0.0-2.0); EOS # 0.8 K/uL (0.0-0.7); EOS % 7.2 % (0.0-4.0); HEMOGLOBIN 12.1 g/dL (12.0-18.0); LYMPH # 1.9 K/uL (1.0-4.3); LYMPH % 16.3 % (20.0-40.0); MEAN CELL VOLUME 91.1 fL (80.0-94.0); MEAN CORPUSCULAR HEMOGLOBIN 30.6 pg (27.0-31.0); MEAN CORPUSCULAR HGB CONC 33.5 g/dL (33.0-37.0); MEAN PLATELET VOLUME 9.5 fL (7.2-11.7); MONO # 0.7 K/uL (0.0-0.8); MONO % 5.8 % (0.0-10.0); NEUT % 70.5 % (50.0-75.0); RBC 3.94 Mil/uL (4.40-5.90); RED CELL DISTRIBUTION WIDTH 15.8 % (11.5-14.5); WHITE BLOOD COUNT 11.4 K/uL (4.8-10.8)
[2018-09-08 06:39] LABS: ALB/GLOB RATIO 1.5 (1.0-2.1); ALBUMIN 3.6 g/dL (3.5-5.0); CALCIUM 8.8 mg/dl (8.6-10.4)
[2018-09-08] MEDS: Metoprolol Succinate 50 mg XL Tab PO SCH ×2 (09:04→18:13)
[2018-09-08 09:08] LABS: HEMOGLOBIN 11.1 g/dL (12.0-18.0)
--- NOTE | 2018-09-08 09:23 | CP.PCM.PN ---
Subjective - Date & Time of Evaluation Date of Evaluation: 09/08/18 Time of Evaluation: 07:12 - Subjective Subjective: Surgery Progress note. Dr. Bailey Pt seen and examined at bedside this morning. No N/V/D. No abdominal pain. No Fevers or chills. Denies any more episodes of bleeding. No new complaints. Pending colonoscopy today. Objective - Vital Signs/Intake and Output Vital Signs (last 24 hours): Temp Pulse Resp BP Pulse Ox 98 F 88 14 149/68 95 09/08/18 04:00 09/08/18 08:50 09/08/18 08:50 09/08/18 08:00 09/08/18 08:50 Intake and Output: 09/08/18 09/08/18 06:59 18:59 Intake Total 5675 75 Output Total 4650 450 Balance 1025 -375 - Medications Medications: Current Medications Abacavir Sulfate (Ziagen) 600 mg PO DAILY ANJEL; Protocol Fosamprenavir Calcium (Lexiva) 700 mg PO BID ANJ[facility]; Protocol Last Admin: 09/07/18 18:30 Dose: 700 mg Gabapentin (Neurontin) 100 mg PO TID [facility] Last Admin: 09/07/18 18:30 Dose: 100 mg Hydrochlorothiazide (Hydrodiuril) 25 mg PO DAILY [facility] Last Admin: 09/07/18 11:00 Dose: Not Given Sodium Bicarbonate 150 meq/ (Dextrose) 1,150 mls @ 75 mls/hr IV .[id number] ANJEL Last Admin: 09/08/18 01:13 Dose: 75 mls/hr Lamivudine (Epivir) 100 mg PO DAILY ANJEL; Protocol Metoclopramide HCl (Reglan) 5 mg IVP Q6H ANJ[facility] Stop: 09/11/18 12:01 Last Admin: 09/08/18 05:47 Dose: 5 mg Metoprolol Succinate (Toprol Xl) 50 mg PO BID [facility] Last Admin: 09/08/18 09:04 Dose: 50 mg Pantoprazole Sodium (Protonix Inj) 40 mg IVP Q12H [facility] Last Admin: 09/08/18 05:38 Dose: 40 mg Ritonavir (Norvir) 100 mg PO DAILY ANJEL; Protocol Last Admin: 09/07/18 11:00 Dose: Not Given Rosuvastatin Calcium (Crestor) 5 mg PO HS [facility] Last Admin: 09/07/18 21:36 Dose: 5 mg - Labs Labs: 09/08/18 08:59 09/08/18 06:00 PT 13.2 SECONDS (9.7-12.2) H 09/06/18 01:14 INR 1.2 09/06/18 01:14 APTT 26.7 SECONDS (21-34) 09/06/18 01:14 - Constitutional Appears: Well, Non-toxic, No Acute Distress - Head Exam Head Exam: ATRAUMATIC, NORMAL INSPECTION, NORMOCEPHALIC - Eye Exam Eye Exam: EOMI, Normal appearance. absent: Scleral icterus - ENT Exam ENT Exam: Mucous Membranes Moist - Respiratory Exam Respiratory Exam: NORMAL BREATHING PATTERN. absent: Accessory Muscle Use, Respiratory Distress - Cardiovascular Exam Cardiovascular Exam: RRR. absent: JVD - GI/Abdominal Exam GI & Abdominal Exam: Soft. absent: Distended, Firm, Guarding, Rigid, Rebound - Extremities Exam Extremities Exam: Normal Inspection. absent: Calf Tenderness - Neurological Exam Neurological Exam: Alert, Awake, Oriented x3 - Skin Skin Exam: Dry, Intact, Normal Color, Warm Assessment and Plan - Assessment and Plan (Free Text) Assessment: 83yo M w GI bleeding, stable. - Hb 11.1 this AM s/p 2U PRBCs. (appropriate response) Plan: - F/u GI recs - f/u Colonoscopy - Recommend STAT bleeding scan if patient shows signs of repeat bleeding - No surgical intervention at this time. - We will monitor and make further recs as warranted Phani Goldstein PGY2 surgery
--- NOTE | 2018-09-08 09:56 | CP.CCUPN ---
CCU Subjective - Physician Review Subjective (Free Text): 09/08/18 09:51 Richie Mota PGY1 Progress Note for Dr. Avila Lim Patient was examined at bedside this morning. He reports feeling nervous. He denies any chest pain, shortness of breath, abdominal pain, nausea, vomiting. No further episodes of hemoptysis reported. He continues to have bowel movements with colonoscopy prep. CCU Objective - Vital Signs / Intake & Output Vital Signs (Last 4 hours): Vital Signs Pulse Resp BP Pulse Ox 09/08/18 09:10 88 22 96 09/08/18 09:00 91 H 16 166/88 H 95 09/08/18 08:50 88 14 95 09/08/18 08:40 81 21 98 09/08/18 08:00 88 20 149/68 95 09/08/18 07:50 86 15 97 09/08/18 07:30 88 17 95 09/08/18 07:10 89 23 97 09/08/18 07:00 144/76 09/08/18 06:40 98 H 16 98 09/08/18 06:30 87 19 99 09/08/18 06:00 118/54 L Intake and Output (Last 8hrs): Intake & Output 09/07/18 09/08/18 09/08/18 22:59 06:59 14:59 Intake Total 4150 1625 255 Output Total 1850 2800 650 Balance 2300 -4775 -395 Weight 76 kg 76.6 kg Intake: Intake, IV Amount 500 225 left forearm 500 225 Oral 2550 500 30 Blood Product 600 625 Red Blood Cells Cpd As1 0 325 Lr Unit [id number] Red Blood Cells Cpd As1 325 Lr Unit [id number] Other 1000 Output: Urine 200 600 450 Urine, Voided 200 600 450 Stool 0 1700 200 Urine/Stool Mix 1650 500 Other: # Voids Urine, Voided 1 0 1 # Bowel Movements 1 0 1 - Physical Exam Head: Positive for: Atraumatic, Normocephalic Pupils: Positive for: PERRL Extroacular Muscles: Positive for: EOMI Conjunctiva: Positive for: Normal Mouth: Positive for: Moist Mucous Membranes Neck: Positive for: Normal Range of Motion Respiratory/Chest: Positive for: Clear to Auscultation, Good Air Exchange. Negative for: Respiratory Distress, Accessory Muscle Use Cardiovascular: Positive for: Regular Rate and Rhythm, Normal S1, S2. Negative for: Murmurs, Rub, Gallop Abdomen: Positive for: Normal Bowel Sounds. Negative for: Tenderness, Distention, Peritoneal Signs Upper Extremity: Positive for: Normal Inspection. Negative for: Cyanosis, Edema Lower Extremity: Positive for: Normal Inspection. Negative for: Edema Neurological: Positive for: GCS=15, CN II-XII Intact, Speech Normal Skin: Positive for: Warm, Normal Color. Negative for: Dry, Rashes Psychiatric: Positive for: Alert, Oriented x 3, Normal Insight, Normal Concentration - Medications Active Medications: Active Medications Generic Name Dose Route Start Last Admin Trade Name Freq PRN Reason Stop Dose Admin Abacavir Sulfate 600 mg 09/08/18 10:00 Ziagen PO DAILY ANJEL Protocol Fosamprenavir Calcium 700 mg 09/06/18 18:30 09/07/18 18:30 Lexiva PO 700 mg BID ANJEL Administration Protocol Gabapentin 100 mg 09/06/18 10:00 09/07/18 18:30 Neurontin PO 100 mg TID ANJEL Administration Hydrochlorothiazide 25 mg 09/06/18 10:00 09/07/18 11:00 Hydrodiuril PO Not Given DAILY ANJEL Sodium Bicarbonate 150 meq/ 1,150 mls @ 75 mls/hr 09/08/18 01:00 09/08/18 01:13 Dextrose IV 75 mls/hr .[id number] ANJEL Administration Lamivudine 100 mg 09/08/18 10:00 Epivir PO DAILY ANJEL Protocol Metoclopramide HCl 5 mg 09/07/18 12:00 09/08/18 05:47 Reglan IVP 09/11/18 12:01 5 mg Q6H ANJEL Administration Metoprolol Succinate 50 mg 09/06/18 10:00 09/08/18 09:04 Toprol Xl PO 50 mg BID ANJEL Administration Pantoprazole Sodium 40 mg 09/07/18 18:15 09/08/18 05:38 Protonix Inj IVP 40 mg Q12H ANJEL Administration Ritonavir 100 mg 09/06/18 10:00 09/07/18 11:00 Norvir PO Not Given DAILY ANJEL Protocol Rosuvastatin Calcium 5 mg 09/06/18 22:00 09/07/18 21:36 Crestor PO 5 mg HS ANJEL Administration - Patient Studies Lab Studies: Lab Studies 09/08/18 09/08/18 09/08/18 Range/Units 08:59 06:00 06:00 WBC 11.4 H (4.8-10.8) K/uL RBC 3.94 L (4.40-5.90) Mil/uL Hgb 11.1 L 12.1 D (12.0-18.0) g/dL Hct 32.1 L 35.9 (35.0-51.0) % MCV 91.1 D (80.0-94.0) fL MCH 30.6 (27.0-31.0) pg MCHC 33.5 (33.0-37.0) g/dL RDW 15.8 H (11.5-14.5) % Plt Count 161 (130-400) K/uL MPV 9.5 (7.2-11.7) fL Neut % (Auto) 70.5 (50.0-75.0) % Lymph % (Auto) 16.3 L (20.0-40.0) % Republic % (Auto) 5.8 (0.0-10.0) % Eos % (Auto) 7.2 H (0.0-4.0) % Baso % (Auto) 0.2 (0.0-2.0) % Neut # (Auto) 8.0 H (1.8-7.0) K/uL Lymph # (Auto) 1.9 (1.0-4.3) K/uL Republic # (Auto) 0.7 (0.0-0.8) K/uL Eos # (Auto) 0.8 H (0.0-0.7) K/uL Baso # (Auto) 0.0 (0.0-0.2) K/uL Sodium 143 (132-148) mmol/L Potassium 3.6 (3.6-5.2) mmol/L Chloride 110 H (98-107) mmol/L Carbon Dioxide 21 L (22-30) mmol/L Anion Gap 16 (10-20) BUN 86 H (9-20) mg/dL Creatinine 2.0 H (0.8-1.5) mg/dL Est GFR ( Amer) 39 Est GFR (Non-Af Amer) 32 Random Glucose 164 H D (75-110) mg/dL Calcium 8.8 (8.6-10.4) mg/dl Phosphorus 2.7 (2.5-4.5) mg/dL Magnesium (1.6-2.3) mg/dL Total Bilirubin 0.6 (0.2-1.3) mg/dL AST 22 (17-59) U/L ALT 21 D (21-72) U/L Alkaline Phosphatase 74 (38-126) U/L Total Protein 6.0 L (6.3-8.3) g/dL Albumin 3.6 (3.5-5.0) g/dL Globulin 2.5 (2.2-3.9) gm/dL Albumin/Globulin Ratio 1.5 (1.0-2.1) HIV 1&2 Antibody Screen (NEGATIVE) Blood Type Blood Type Confirm Antibody Screen 09/08/18 09/07/18 09/07/18 Range/Units 06:00 21:12 13:51 WBC 9.8 (4.8-10.8) K/uL RBC 2.67 L (4.40-5.90) Mil/uL Hgb 8.6 L (12.0-18.0) g/dL Hct 25.2 L (35.0-51.0) % MCV 94.4 H (80.0-94.0) fL MCH 32.3 H (27.0-31.0) pg MCHC 34.2 (33.0-37.0) g/dL RDW 15.1 H (11.5-14.5) % Plt Count 165 (130-400) K/uL MPV 9.6 (7.2-11.7) fL Neut % (Auto) (50.0-75.0) % Lymph % (Auto) (20.0-40.0) % Republic % (Auto) (0.0-10.0) % Eos % (Auto) (0.0-4.0) % Baso % (Auto) (0.0-2.0) % Neut # (Auto) (1.8-7.0) K/uL Lymph # (Auto) (1.0-4.3) K/uL Republic # (Auto) (0.0-0.8) K/uL Eos # (Auto) (0.0-0.7) K/uL Baso # (Auto) (0.0-0.2) K/uL Sodium 142 (132-148) mmol/L Potassium 4.2 (3.6-5.2) mmol/L Chloride 112 H (98-107) mmol/L Carbon Dioxide 19 L (22-30) mmol/L Anion Gap 16 (10-20) BUN 99 H (9-20) mg/dL Creatinine 2.5 H (0.8-1.5) mg/dL Est GFR ( Amer) 30 Est GFR (Non-Af Amer) 25 Random Glucose 100 D (75-110) mg/dL Calcium 9.1 (8.6-10.4) mg/dl Phosphorus (2.5-4.5) mg/dL Magnesium 1.6 (1.6-2.3) mg/dL Total Bilirubin (0.2-1.3) mg/dL AST (17-59) U/L ALT (21-72) U/L Alkaline Phosphatase (38-126) U/L Total Protein (6.3-8.3) g/dL Albumin (3.5-5.0) g/dL Globulin (2.2-3.9) gm/dL Albumin/Globulin Ratio (1.0-2.1) HIV 1&2 Antibody Screen (NEGATIVE) Blood Type Blood Type Confirm Antibody Screen 09/07/18 09/06/18 Range/Units 08:05 01:42 WBC (4.8-10.8) K/uL RBC (4.40-5.90) Mil/uL Hgb (12.0-18.0) g/dL Hct (35.0-51.0) % MCV (80.0-94.0) fL MCH (27.0-31.0) pg MCHC (33.0-37.0) g/dL RDW (11.5-14.5) % Plt Count (130-400) K/uL MPV (7.2-11.7) fL Neut % (Auto) (50.0-75.0) % Lymph % (Auto) (20.0-40.0) % Republic % (Auto) (0.0-10.0) % Eos % (Auto) (0.0-4.0) % Baso % (Auto) (0.0-2.0) % Neut # (Auto) (1.8-7.0) K/uL Lymph # (Auto) (1.0-4.3) K/uL Republic # (Auto) (0.0-0.8) K/uL Eos # (Auto) (0.0-0.7) K/uL Baso # (Auto) (0.0-0.2) K/uL Sodium (132-148) mmol/L Potassium (3.6-5.2) mmol/L Chloride (98-107) mmol/L Carbon Dioxide (22-30) mmol/L Anion Gap (10-20) BUN (9-20) mg/dL Creatinine (0.8-1.5) mg/dL Est GFR ( Amer) Est GFR (Non-Af Amer) Random Glucose (75-110) mg/dL Calcium (8.6-10.4) mg/dl Phosphorus (2.5-4.5) mg/dL Magnesium (1.6-2.3) mg/dL Total Bilirubin (0.2-1.3) mg/dL AST (17-59) U/L ALT (21-72) U/L Alkaline Phosphatase (38-126) U/L Total Protein (6.3-8.3) g/dL Albumin (3.5-5.0) g/dL Globulin (2.2-3.9) gm/dL Albumin/Globulin Ratio (1.0-2.1) HIV 1&2 Antibody Screen Reactive (NEGATIVE) Blood Type AB POSITIVE Blood Type Confirm AB POSITIVE Antibody Screen Negative Laboratory Results - last 24 hr 09/06/18 09/07/18 09/07/18 01:42 08:05 13:51 WBC 9.8 RBC 2.67 L Hgb 8.6 L Hct 25.2 L MCV 94.4 H MCH 32.3 H MCHC 34.2 RDW 15.1 H Plt Count 165 MPV 9.6 Neut % (Auto) Lymph % (Auto) Republic % (Auto) Eos % (Auto) Baso % (Auto) Neut # (Auto) Lymph # (Auto) Republic # (Auto) Eos # (Auto) Baso # (Auto) Sodium Potassium Chloride Carbon Dioxide Anion Gap BUN Creatinine Est GFR ( Amer) Est GFR (Non-Af Amer) Random Glucose Calcium Phosphorus Magnesium Total Bilirubin AST ALT Alkaline Phosphatase Total Protein Albumin Globulin Albumin/Globulin Ratio HIV 1&2 Antibody Screen Reactive Blood Type AB POSITIVE Blood Type Confirm AB POSITIVE Antibody Screen Negative 09/07/18 09/08/18 09/08/18 21:12 06:00 06:00 WBC RBC Hgb Hct MCV MCH MCHC RDW Plt Count MPV Neut % (Auto) Lymph % (Auto) Republic % (Auto) Eos % (Auto) Baso % (Auto) Neut # (Auto) Lymph # (Auto) Republic # (Auto) Eos # (Auto) Baso # (Auto) Sodium 142 143 Potassium 4.2 3.6 Chloride 112 H 110 H Carbon Dioxide 19 L 21 L Anion Gap 16 16 BUN 99 H 86 H Creatinine 2.5 H 2.0 H Est GFR ( Amer) 30 39 Est GFR (Non-Af Amer) 25 32 Random Glucose 100 D 164 H D Calcium 9.1 8.8 Phosphorus 2.7 Magnesium 1.6 Total Bilirubin 0.6 AST 22 ALT 21 D Alkaline Phosphatase 74 Total Protein 6.0 L Albumin 3.6 Globulin 2.5 Albumin/Globulin Ratio 1.5 HIV 1&2 Antibody Screen Blood Type Blood Type Confirm Antibody Screen 09/08/18 09/08/18 06:00 08:59 WBC 11.4 H RBC 3.94 L Hgb 12.1 D 11.1 L Hct 35.9 32.1 L MCV 91.1 D MCH 30.6 MCHC 33.5 RDW 15.8 H Plt Count 161 MPV 9.5 Neut % (Auto) 70.5 Lymph % (Auto) 16.3 L Republic % (Auto) 5.8 Eos % (Auto) 7.2 H Baso % (Auto) 0.2 Neut # (Auto) 8.0 H Lymph # (Auto) 1.9 Republic # (Auto) 0.7 Eos # (Auto) 0.8 H Baso # (Auto) 0.0 Sodium Potassium Chloride Carbon Dioxide Anion Gap BUN Creatinine Est GFR ( Amer) Est GFR (Non-Af Amer) Random Glucose Calcium Phosphorus Magnesium Total Bilirubin AST ALT Alkaline Phosphatase Total Protein Albumin Globulin Albumin/Globulin Ratio HIV 1&2 Antibody Screen Blood Type Blood Type Confirm Antibody Screen Review of Systems - Review of Systems Review of Systems: 12 point ROS performed and negative other than what is stated in HPI Critical Care Progress Note - Nutrition Nutrition: Nutrition Category Date Time Status NPO Diet [DIET] Diets 09/08/18 Breakfast Active Assessment/Plan - Assessment and Plan (Free Text) Assessment: Patient is an 83yo M with PMH CAD, HIV, HTN, Hyperlipidemia, Arthritis presenting with hemoptysis. ICU consulted for GI bleed. EGD performed 09/06 showing gastritis. Colonoscopy scheduled for today. Bleeding scan to be performed thereafter. Plan: Neuro: - AAOx3 - GSC 15 - no focal deficits Cardiovascular: - h/o HTN, HLD - maintain normotension - toprol XL, cozaar, HCTZ - crestor - monitor heart rate and BP for sign of hypovolemic shock 05/20 bleeding Resp: - maintain SpO2 >92% GI: - black tarry stools - EGD 09/06: active bleeding not visualized, gastritis - Colonoscopy for today - bleeding scan to follow - s/p 2u PRBCs 09/07 - protonix IV q12h - GI consulted, Dr. Henry nails appreciated - Surgery consulted, Dr. Lynn nails appreciated Heme: - Hb increased 12.1 - s/p 2u PRBCs - H/H q8h Renal: - atrophic kidneys appreciated on CT abd/pel - BUN/Cr elevated - D5W Bicarb @75cc/hr ID: - h/o HIV - HAART continued - ID consulted, Dr. Jorden nails appreciated Endo: - maintain euglycemia PPX: GI: protonix q12h DVT: SCDs, no chemical anticoag at this time due to active GI bleed NPO for colonoscopy Dispo: f/u results of colonoscopy, f/u bleeding scan. Continue to monitor H/H Patient seen and case discussed with Dr. Avila Lim
[2018-09-08 10:59] LABS: % CD4 (T HELPER CELL) 33 Percent (30-61); % CD8 (SUPPRESSOR T CELL) 37 Percent (12-42); ABSOLUTE CD4 CELLS 610 Cells/mcL (490-1740); ABSOLUTE CD8 CELLS 696 Cells/mcL (180-1170); ABSOLUTE LYMPHOCYTES 1874 Cells/mcL (850-3900); HELPER/SUPPRESSOR RATIO 0.88 Ratio (0.86-5.00)
[2018-09-08] MEDS ORDERED: Propofol 10 mg/ml Inj (20 ML) ONE ×2 (11:53)
--- NOTE | 2018-09-08 12:33 | CP.PCM.PN ---
Subjective - Date & Time of Evaluation Date of Evaluation: 09/08/18 Time of Evaluation: 09:00 - Subjective Subjective: seen on rounds appears comfortable CD4 640 Objective - Vital Signs/Intake and Output Vital Signs (last 24 hours): Temp Pulse Resp BP Pulse Ox 98 F 90 17 133/61 98 09/08/18 04:00 09/08/18 11:30 09/08/18 11:30 09/08/18 11:00 09/08/18 11:30 Intake and Output: 09/08/18 09/08/18 06:59 18:59 Intake Total 5675 405 Output Total 4650 1270 Balance 1025 -865 - Medications Medications: Current Medications Abacavir Sulfate (Ziagen) 600 mg PO DAILY ANJ[facility]; Protocol Fosamprenavir Calcium (Lexiva) 700 mg PO BID [facility]; Protocol Last Admin: 09/08/18 09:00 Dose: Not Given Gabapentin (Neurontin) 100 mg PO TID [facility] Last Admin: 09/08/18 10:20 Dose: Not Given Hydrochlorothiazide (Hydrodiuril) 25 mg PO DAILY [facility] Last Admin: 09/07/18 11:00 Dose: Not Given Sodium Bicarbonate 150 meq/ (Dextrose) 1,150 mls @ 75 mls/hr IV .[id number] ANJ[facility] Last Admin: 09/08/18 01:13 Dose: 75 mls/hr Lamivudine (Epivir) 100 mg PO DAILY ANJEL; Protocol Metoclopramide HCl (Reglan) 5 mg IVP Q6H [facility] Stop: 09/11/18 12:01 Last Admin: 09/08/18 11:19 Dose: 5 mg Metoprolol Succinate (Toprol Xl) 50 mg PO BID [facility] Last Admin: 09/08/18 09:04 Dose: 50 mg Pantoprazole Sodium (Protonix Inj) 40 mg IVP Q12H [facility] Last Admin: 09/08/18 05:38 Dose: 40 mg Ritonavir (Norvir) 100 mg PO DAILY ANJ[facility]; Protocol Last Admin: 09/07/18 11:00 Dose: Not Given Rosuvastatin Calcium (Crestor) 5 mg PO HS [facility] Last Admin: 09/07/18 21:36 Dose: 5 mg - Labs Labs: 09/08/18 08:59 09/08/18 06:00 PT 13.2 SECONDS (9.7-12.2) H 09/06/18 01:14 INR 1.2 09/06/18 01:14 APTT 26.7 SECONDS (21-34) 09/06/18 01:14 - Constitutional Appears: Well - Head Exam Head Exam: ATRAUMATIC, NORMAL INSPECTION, NORMOCEPHALIC - Eye Exam Eye Exam: EOMI, Normal appearance, PERRL Pupil Exam: NORMAL ACCOMODATION, PERRL - ENT Exam ENT Exam: Mucous Membranes Moist, Normal Exam - Neck Exam Neck Exam: Full ROM, Normal Inspection. absent: Lymphadenopathy - Respiratory Exam Respiratory Exam: Clear to Ausculation Bilateral, NORMAL BREATHING PATTERN - Cardiovascular Exam Cardiovascular Exam: REGULAR RHYTHM, +S1, +S2. absent: Murmur - GI/Abdominal Exam GI & Abdominal Exam: Soft, Normal Bowel Sounds. absent: Tenderness - Rectal Exam Rectal Exam: Deferred - Extremities Exam Extremities Exam: Full ROM, Normal Capillary Refill, Normal Inspection. absent: Joint Swelling, Pedal Edema - Back Exam Back Exam: NORMAL INSPECTION - Neurological Exam Neurological Exam: Alert, Awake, CN II-XII Intact, Normal Gait, Oriented x3 - Psychiatric Exam Psychiatric exam: Normal Affect, Normal Mood - Skin Skin Exam: Dry, Intact, Normal Color, Warm Assessment and Plan (1) HIV (human immunodeficiency virus infection) Status: Acute (2) Abdominal pain Status: Acute (3) Gastrointestinal hemorrhage Status: Acute (4) Renal insufficiency Status: Acute (5) Dehydration Status: Acute (6) Dizziness Status: Acute - Assessment and Plan (Free Text) Plan: cont rx as plannned pt to obtain HIV meds from home
[2018-09-08] MEDS: LamiVUDine 10 mg/ml Syringe PO SCH (14:53)
[2018-09-08] MEDS: Sodium Bicarbonate 8.4% 150 MEQ in Dextrose 5% In Water 1,000 ML IV SCH ×2 (15:30→18:02)
[2018-09-08 16:31] LABS: HEMOGLOBIN 10.9 g/dL (12.0-18.0)
--- NOTE | 2018-09-08 22:47 | CP.PCM.PN ---
Subjective - Date & Time of Evaluation Date of Evaluation: 09/08/18 Time of Evaluation: 09:00 - Subjective Subjective: dict Objective - Vital Signs/Intake and Output Vital Signs (last 24 hours): Temp Pulse Resp BP Pulse Ox 97.8 F 75 19 116/68 96 09/08/18 22:00 09/08/18 22:00 09/08/18 22:00 09/08/18 21:13 09/08/18 22:00 Intake and Output: 09/08/18 09/09/18 18:59 06:59 Intake Total 1630 200 Output Total 1795 100 Balance -165 100 - Medications Medications: Current Medications Abacavir Sulfate (Ziagen) 600 mg PO DAILY ANJ[facility]; Protocol Last Admin: 09/08/18 14:55 Dose: 600 mg Fosamprenavir Calcium (Lexiva) 700 mg PO BID [facility]; Protocol Last Admin: 09/08/18 18:13 Dose: 700 mg Gabapentin (Neurontin) 100 mg PO TID [facility] Last Admin: 09/08/18 18:13 Dose: 100 mg Hydrochlorothiazide (Hydrodiuril) 25 mg PO DAILY [facility] Last Admin: 09/08/18 14:53 Dose: 25 mg Sodium Bicarbonate 150 meq/ (Dextrose) 1,150 mls @ 50 mls/hr IV .Q23H [facility] Last Admin: 09/08/18 18:02 Dose: 50 mls/hr Lamivudine (Epivir) 100 mg PO DAILY ANJ[facility]; Protocol Last Admin: 09/08/18 14:53 Dose: 100 mg Metoclopramide HCl (Reglan) 5 mg IVP Q6H ANJEL Stop: 09/11/18 12:01 Last Admin: 09/08/18 18:12 Dose: 5 mg Metoprolol Succinate (Toprol Xl) 50 mg PO BID [facility] Last Admin: 09/08/18 18:13 Dose: 50 mg Pantoprazole Sodium (Protonix Inj) 40 mg IVP Q12H [facility] Last Admin: 09/08/18 18:12 Dose: 40 mg Ritonavir (Norvir) 100 mg PO DAILY ANJEL; Protocol Last Admin: 09/08/18 14:53 Dose: 100 mg Rosuvastatin Calcium (Crestor) 5 mg PO HS [facility] Last Admin: 09/08/18 22:14 Dose: Not Given - Labs Labs: 09/08/18 16:28 09/08/18 06:00 PT 13.2 SECONDS (9.7-12.2) H 09/06/18 01:14 INR 1.2 09/06/18 01:14 APTT 26.7 SECONDS (21-34) 09/06/18 01:14
--- NOTE | 2018-09-09 03:46 | PN ---
DATE: 09/08/2018 SUBJECTIVE: The patient is not bleeding. He is hemodynamically stable. His H and H is stable. He is afebrile. PHYSICAL EXAMINATION: VITAL SIGNS: Blood pressure 130/70, pulse 78, respiratory rate 16, and temperature 97.8. LUNGS: Clear. CARDIOVASCULAR SYSTEM: S1 and S2, regular. ABDOMEN: Soft and nontender. Bowel sounds are positive. ASSESSMENT AND PLAN: Gastrointestinal bleed, status post gastrointestinal evaluation and the patient had gastritis with gastric erosion and yesterday I noticed melena and the patient was transferred to intensive care unit, remained stable, received blood transfusion. His CT of the abdomen showed diverticulosis and enlarged prostate. No diverticulitis. The patient is stable. The patient will be monitored in the intensive care unit. The patient is on proton pump inhibitor. Gastrointestinal follow up. The patient will be followed up closely. Francisco Richards MD
[2018-09-09 04:23] LABS: BASO % 0.3 % (0.0-2.0); EOS # 0.6 K/uL (0.0-0.7); EOS % 6.1 % (0.0-4.0); HEMOGLOBIN 11.4 g/dL (12.0-18.0); MEAN CORPUSCULAR HGB CONC 34.1 g/dL (33.0-37.0); MEAN PLATELET VOLUME 9.3 fL (7.2-11.7); MONO # 0.8 K/uL (0.0-0.8); NEUT # 6.6 K/uL (1.8-7.0); NEUT % 65.6 % (50.0-75.0); RBC 3.67 Mil/uL (4.40-5.90); RED CELL DISTRIBUTION WIDTH 15.4 % (11.5-14.5); WHITE BLOOD COUNT 10.1 K/uL (4.8-10.8)
[2018-09-09 04:50] LABS: ALB/GLOB RATIO 1.3 (1.0-2.1); ALBUMIN 3.4 g/dL (3.5-5.0)
[2018-09-09] MEDS ORDERED: Magnesium Sulfate 1 gm in D5W 1 GM/100 ML BAG IVPB ONE (05:25)
[2018-09-09] MEDS: Metoprolol Succinate 50 mg XL Tab PO SCH ×2 (09:19→17:23)
[2018-09-09] MEDS: LamiVUDine 10 mg/ml Syringe PO SCH (09:21)
--- NOTE | 2018-09-09 09:44 | CP.PCM.PN ---
Subjective - Date & Time of Evaluation Date of Evaluation: 09/09/18 Time of Evaluation: 09:30 - Subjective Subjective: Patient awake, alert eating foof, deneis any abdominal pain, denies any breathing problems, deneis any dizziness, normal brown stool Objective - Vital Signs/Intake and Output Vital Signs (last 24 hours): Temp Pulse Resp BP Pulse Ox 98.4 F 62 22 165/72 H 100 09/09/18 06:00 09/09/18 09:00 09/09/18 09:00 09/09/18 08:14 09/09/18 09:00 Intake and Output: 09/09/18 09/09/18 06:59 18:59 Intake Total 800 490 Output Total 630 200 Balance 170 290 - Medications Medications: Current Medications Abacavir Sulfate (Ziagen) 600 mg PO DAILY [facility]; Protocol Last Admin: 09/09/18 09:19 Dose: 600 mg Fosamprenavir Calcium (Lexiva) 700 mg PO BID [facility]; Protocol Last Admin: 09/09/18 09:18 Dose: 700 mg Gabapentin (Neurontin) 100 mg PO TID [facility] Last Admin: 09/09/18 09:19 Dose: 100 mg Hydrochlorothiazide (Hydrodiuril) 25 mg PO DAILY [facility] Last Admin: 09/09/18 09:19 Dose: 25 mg Lamivudine (Epivir) 100 mg PO DAILY [facility]; Protocol Last Admin: 09/09/18 09:21 Dose: 100 mg Losartan Potassium (Cozaar) 25 mg PO DAILY [facility] Last Admin: 09/09/18 09:19 Dose: 25 mg Metoclopramide HCl (Reglan) 5 mg IVP Q6H [facility] Stop: 09/11/18 12:01 Last Admin: 09/09/18 05:56 Dose: 5 mg Metoprolol Succinate (Toprol Xl) 50 mg PO BID [facility] Last Admin: 09/09/18 09:19 Dose: 50 mg Pantoprazole Sodium (Protonix Inj) 40 mg IVP Q12H [facility] Last Admin: 09/09/18 05:57 Dose: 40 mg Ritonavir (Norvir) 100 mg PO DAILY [facility]; Protocol Last Admin: 09/09/18 09:18 Dose: 100 mg Rosuvastatin Calcium (Crestor) 5 mg PO HS [facility] Last Admin: 09/08/18 22:14 Dose: Not Given Tamsulosin HCl (Flomax) 0.4 mg PO DAILY [facility] Last Admin: 09/09/18 09:21 Dose: 0.4 mg - Labs Labs: 09/09/18 04:20 09/09/18 04:20 PT 13.2 SECONDS (9.7-12.2) H 09/06/18 01:14 INR 1.2 09/06/18 01:14 APTT 26.7 SECONDS (21-34) 09/06/18 01:14 - Head Exam Head Exam: ATRAUMATIC, NORMAL INSPECTION - Eye Exam Eye Exam: EOMI, Normal appearance - ENT Exam ENT Exam: Mucous Membranes Moist - Neck Exam Neck Exam: Full ROM - Respiratory Exam Respiratory Exam: Clear to Ausculation Bilateral, NORMAL BREATHING PATTERN - Cardiovascular Exam Cardiovascular Exam: +S1, +S2 - GI/Abdominal Exam GI & Abdominal Exam: Soft, Normal Bowel Sounds. absent: Tenderness - Extremities Exam Extremities Exam: Full ROM, Normal Inspection - Neurological Exam Neurological Exam: Alert, Awake, Oriented x3 - Skin Skin Exam: Normal Color, Warm Assessment and Plan - Assessment and Plan (Free Text) Assessment: Patient is an 83yo M with PMH CAD, HIV, HTN, Hyperlipidemia, Arthritis presenting with hemoptysis. ICU consulted for GI bleed. EGD performed 09/06 showi ng gastritis. Colonoscopy scheduled for today. Bleeding scan to be performed thereafter. HTN, HLD: continue current home medications - no signs of hypovolemic shock 2/2 bleeding Resp: - maintain SpO2 >92% -Acute blood loss anemia: resolved: Hb remains stable, GI requested to start oral diet, tolerating transfuse as needed -LUDIVINA: resolving, d/c bicarb, avoid nephrotoxic drugs - h/o HIV: HAART continued as per ID consulted -patient remains hemodynamically stable.
[2018-09-09 14:37] LABS: CALCIUM 9.1 mg/dl (8.6-10.4)
--- NOTE | 2018-09-09 16:08 | PN ---
DATE: 09/09/2018 LOCATION: ICU 9. SUBJECTIVE: This is a an 83-year-old male, seen and examined in rounds early today without significant clinical changes, reported to be medication without reported recent active bleeding. The entire chart is reviewed including but not limited to the most recent lab and radiology study results and no reported actual chest pain, palpitation or significant shortness of breath. LABORATORY DATA: Most recent lab results showed hemoglobin 11.4, hematocrit 33.5 with normal white blood cells and platelet count. Potassium 3.2, CO2 content of 32 indicative of respiratory alkalosis, BUN down to 53, creatinine 1.6, blood glucose 123, total protein 6.1, and albumin 3.4. PHYSICAL EXAMINATION: GENERAL: An 83-year-old male, awake, alert, and oriented. VITAL SIGNS: Afebrile with pulse of 68, respiratory rate of 20-22, and blood pressure of 154/80. HEENT: Showed pale, dry oral mucous membrane. Nonicteric sclerae. LUNGS: Few scattered crepitation. Decreased air entry at bases. HEART: Positive S1 and S2. ABDOMEN: Soft with mild generalized tenderness. No mass or organomegaly. No rebound tenderness or guarding. EXTREMITIES: Without edema, clubbing or cyanosis. NEUROLOGICAL: No reported new neurological deficit, sensory or motor. IMPRESSION: 1. Colon polyps with the colon mass-like lesion at the rectal area, pathology report is still pending. The possibility of Kaposi sarcoma was raised. 2. Diffuse diverticulosis, which could be a factor for the patient's anemia in general as well as internal hemorrhoids. 3. Erosive gastritis, hiatus hernia with distal esophagitis by recent upper endoscopy, pathology report was negative for Helicobacter pylori infection. 4. Poorly-controlled diabetes mellitus. 5. Reported history of human immunodeficiency virus. SUGGESTIONS: 1. Continue current management. 2. Hematology/Oncology evaluation. 3. Antireflux measures. Prem Hernandez MD
--- NOTE | 2018-09-10 01:17 | PN ---
DATE: 09/09/2018 SUBJECTIVE: The patient's potassium is low. He is not actively bleeding. His H and H has been stabilized. Status post EGD, status post blood transfusion. He is afebrile. No shortness of breath. No chest pain. PHYSICAL EXAMINATION: VITAL SIGNS: Blood pressure 130/80, pulse 70, respiratory rate 18, and temperature 99. LUNGS: Clear. CARDIOVASCULAR SYSTEM: S1 and S2, regular. ABDOMEN: Soft. Nontender. Bowel sounds are positive. ASSESSMENT: 1. Gastritis with bleeding, resolved. 2. Acquired immunodeficiency syndrome. 3. Hypertension. 4. . PLAN: Continue current medication. Monitor the patient. Francisco Richards MD
--- NOTE | 2018-09-10 05:30 | CON ---
DATE: 09/06/[address] Hernandez to Dr. Francisco Richards. I was called for GI consultation by the admitting medical team. The patient was seen and fully examined on 09/06/2018 as requested by the medical staff. The entire chart is reviewed including but not limited to most recent lab and radiology study results, current and the previous medication list, current and the previous medical events as well as allergy to medication list. Case discussed with the staff at length before and immediately after my GI consultation and physical examination on 09/06/2018. HISTORY OF PRESENT ILLNESS: This is an 83-year-old male who was admitted to hospital through the emergency room due to recurrent episodes of nausea and vomiting of fresh blood with generalized weakness and malaise. No reported chest pain, palpitation or significant increase of shortness of breath. No chills or fever. PAST MEDICAL HISTORY: Including but not limited to, 1. HIV. 2. Hypertension with hyperlipidemia. 3. Known history of rheumatoid arthritis. 4. Peptic ulcer disease. 5. Coronary artery disease. 6. Status post CABG by history. CURRENT MEDICATIONS: Postadmission medication list was reviewed. FAMILY HISTORY: Unknown. SOCIAL HISTORY: Denies any recent history of cigarette smoking or alcohol intake. ALLERGY TO MEDICATION: UNCLEAR. Initial blood workup post admission showed leukocytosis of 14.7, blood glucose level 223, BUN 85, creatinine 2.1 with CO2 content of 18 indicative of metabolic acidosis. PHYSICAL EXAMINATION: GENERAL: An 83-year-old male, appears to be awake, alert, oriented. VITAL SIGNS: Stable including respiratory rate of 20 to 22, afebrile with pulse of 86. HEENT: Showed pale, dry oral mucous membrane. Nonicteric sclerae. LUNGS: Few scattered crepitation. Decreased air entry at bases. LYMPH NODES: No lymphadenitis or lymphadenopathy. HEART: Positive S1 and S2. ABDOMEN: Soft with slight generalized tenderness. Bowel sounds are present. No mass or organomegaly. No rebound tenderness or guarding. RECTAL: The patient refused. EXTREMITIES: With mild lower extremity edematous changes. No clubbing or cyanosis. NEUROLOGIC: No reported new neurological deficits, sensory or motor. No reported new focal deficits. IMPRESSION: 1. Gastrointestinal bleeding, upper versus lower, with mild anemia. 2. To rule out occult gastrointestinal malignancy. 3. Multiple past medical history as mentioned above. 4. Metabolic acidosis with leukocytosis of unclear etiology. The possibility of pneumonia was raised. SUGGESTIONS: 1. Agree with your plan. 2. Sectional abdominal and pelvic CAT scan. Cancer markers including CEA and PSA. 3. Started Flagyl IV. Proton pump inhibitors IV. 4. Endoscopic evaluation of the GI tract when the patient is more stable clinically. 5. Further recommendation to follow. Thank you for letting me participate in your patient's case management and ID consultation to be considered due to the patient's known history of HIV. We will follow up closely with you. Prem Hernandez MD
[2018-09-10 08:30] LABS: ALB/GLOB RATIO 1.4 (1.0-2.1); ALBUMIN 3.5 g/dL (3.5-5.0); CALCIUM 9.1 mg/dl (8.6-10.4)
[2018-09-10] MEDS: Metoprolol Succinate 50 mg XL Tab PO SCH ×2 (09:40→17:26)
[2018-09-10] MEDS: LamiVUDine 10 mg/ml Syringe PO SCH (09:40)
--- NOTE | 2018-09-10 10:07 | CARD ---
APPROVED REPORT Date of service: 09/06/2018 EKG Measurement Heart [id number] <Conclusion> Sinus tachycardia Left bundle branch block Abnormal ECG
--- NOTE | 2018-09-10 14:00 | PN ---
DATE: 09/10/2018 LOCATION: 565, bed A. SUBJECTIVE: This is an 83-year-old male seen and examined in rounds out of the intensive care unit, appeared to be awake, alert, oriented. Denied any actual pain or evidence of active GI bleeding. No chest pain, palpitation or significant shortness of breath. The entire chart is reviewed including the most recent lab and radiology study results and today's lab results showed BUN of 39 with normal creatinine, low total protein of 5.9. It has to be mentioned that the patient's latest colon pathology report by colonoscopy, results are still pending. PHYSICAL EXAMINATION: GENERAL: A 83-year-old male awake, alert, oriented. VITAL SIGNS: Afebrile with pulse of 72, respiratory rate 20-22, blood pressure of 162/70. HEENT: Showed pale, dry oral mucous membrane. Nonicteric sclerae. LUNGS: Few scattered crepitation. Decreased air entry at bases. HEART: Positive S1 and S2. ABDOMEN: Soft with mild generalized tenderness. No mass or organomegaly. No rebound tenderness or guarding. EXTREMITIES: Without significant clubbing, cyanosis or edema. No reported new neurological deficits, sensory or motor. IMPRESSION: 1. Colon polypoid mass lesion with polyps. The possibility of rectal cancer was raised, awaiting pathology report. 2. Diffuse diverticulosis. 3. Re-exacerbation of peptic ulcer disease. 4. Anemia secondary to above most likely. 5. Poorly controlled diabetes mellitus, improved clinically. 6. Known history of human immunodeficiency virus. SUGGESTIONS: 1. Continue current management. 2. Antireflux measures. 3. No citrus, no seeds. Prem Hernandez MD
--- NOTE | 2018-09-10 23:47 | CP.PCM.PN ---
Subjective - Date & Time of Evaluation Date of Evaluation: 09/10/18 Time of Evaluation: 08:00 - Subjective Subjective: events noted IV rx in progress Objective - Vital Signs/Intake and Output Vital Signs (last 24 hours): Temp Pulse Resp BP Pulse Ox 97.6 F 74 20 131/67 94 L 09/10/18 16:42 09/10/18 16:42 09/10/18 16:42 09/10/18 16:42 09/10/18 16:42 Intake and Output: 09/10/18 09/10/18 06:59 18:59 Intake Total 120 Balance 120 - Medications Medications: Current Medications Abacavir Sulfate (Ziagen) 600 mg PO DAILY [facility]; Protocol Last Admin: 09/10/18 09:49 Dose: 600 mg Fosamprenavir Calcium (Lexiva) 700 mg PO BID [facility]; Protocol Last Admin: 09/10/18 09:40 Dose: 700 mg Gabapentin (Neurontin) 100 mg PO TID [facility] Last Admin: 09/10/18 13:07 Dose: 100 mg Hydrochlorothiazide (Hydrodiuril) 25 mg PO DAILY [facility] Last Admin: 09/10/18 09:40 Dose: 25 mg Lamivudine (Epivir) 100 mg PO DAILY [facility]; Protocol Last Admin: 09/10/18 09:40 Dose: 100 mg Losartan Potassium (Cozaar) 25 mg PO DAILY [facility] Last Admin: 09/10/18 09:39 Dose: 25 mg Metoclopramide HCl (Reglan) 5 mg IVP Q6H [facility] Stop: 09/11/18 12:01 Last Admin: 09/10/18 13:07 Dose: 5 mg Metoprolol Succinate (Toprol Xl) 50 mg PO BID [facility] Last Admin: 09/10/18 09:40 Dose: 50 mg Pantoprazole Sodium (Protonix Inj) 40 mg IVP Q12H [facility] Last Admin: 09/10/18 06:21 Dose: 40 mg Ritonavir (Norvir) 100 mg PO DAILY [facility]; Protocol Last Admin: 09/10/18 09:40 Dose: 100 mg Rosuvastatin Calcium (Crestor) 5 mg PO HS [facility] Last Admin: 09/09/18 21:25 Dose: 5 mg Tamsulosin HCl (Flomax) 0.4 mg PO DAILY [facility] Last Admin: 09/10/18 09:49 Dose: 0.4 mg - Labs Labs: 09/09/18 04:20 09/10/18 08:00 PT 13.2 SECONDS (9.7-12.2) H 09/06/18 01:14 INR 1.2 09/06/18 01:14 APTT 26.7 SECONDS (21-34) 09/06/18 01:14 - Constitutional Appears: Non-toxic, Cachectic, Chronically Ill - Head Exam Head Exam: NORMOCEPHALIC - Eye Exam Eye Exam: absent: Scleral icterus Pupil Exam: NORMAL ACCOMODATION - ENT Exam ENT Exam: Mucous Membranes Dry - Neck Exam Neck Exam: absent: Lymphadenopathy - Respiratory Exam Respiratory Exam: Decreased Breath Sounds - Cardiovascular Exam Cardiovascular Exam: REGULAR RHYTHM - GI/Abdominal Exam GI & Abdominal Exam: Distended, Soft - Rectal Exam Rectal Exam: Deferred - Exam Exam: NORMAL INSPECTION - Extremities Exam Extremities Exam: absent: Pedal Edema - Back Exam Back Exam: absent: CVA tenderness (L), CVA tenderness (R) - Neurological Exam Neurological Exam: Alert, Awake Assessment and Plan (1) HIV (human immunodeficiency virus infection) Status: Acute (2) Abdominal pain Status: Acute (3) Gastrointestinal hemorrhage Status: Acute (4) Renal insufficiency Status: Acute (5) Dehydration Status: Acute (6) Dizziness Status: Acute - Assessment and Plan (Free Text) Assessment: cont rx as ordered follow upo with PMD
--- NOTE | 2018-09-11 08:16 | PN ---
DATE: 09/11/2018 LOCATION: 565, bed A. SUBJECTIVE: This is an 83-year-old male seen and examined early in rounds without significant clinical changes or reported active GI bleeding, somewhat tolerating oral intake well without reported chest pain, palpitation, chills or fever, or significant increase of shortness of breath. The entire chart is reviewed including but not limited to the most recent lab and radiology study results and the patient today's lab results still pending. However, he reported to have low hemoglobin and hematocrit recently but normal white blood cells and platelet counts with increased BUN but normal creatinine with low total protein. PHYSICAL EXAMINATION: GENERAL: A 83-year-old male awake, alert, oriented. VITAL SIGNS: Afebrile with pulse of 70, respiratory rate 20 to 22, blood pressure of 140/70. HEENT: Showed pale, dry oral mucous membrane. Nonicteric sclerae. LUNGS: Few scattered crepitation. Decreased air entry at bases. HEART: Positive S1 and S2. ABDOMEN: Soft. Bowel sounds are present. No mass or organomegaly. No rebound tenderness or guarding. EXTREMITIES: Without significant clubbing, cyanosis or edema. NEUROLOGIC: No reported new neurological deficits, sensory or motor. No reported new focal deficits. RECTAL: The patient refused. The patient however reported recently diarrhea with trace of fresh blood, none reported this morning. IMPRESSION: 1. Gastrointestinal blood loss was anemia. 2. Colon polyps with rectal polypoid mass lesion, pathology report is still pending. The possibility of carcinoma of the rectum was raised. 3. Diffuse diverticulosis. 4. Re-exacerbation of peptic ulcer disease. 5. Anemia secondary to above. 6. Known history of human immunodeficiency virus. 7. Poorly controlled diabetes mellitus., improved clinically. SUGGESTIONS: 1. Continue current management. 2. Follow up on pathology report. 3. Antireflux measures. 4. Further recommendation to follow. Prem Hernandez MD
[2018-09-11 08:42] LABS: BASO % 0.3 % (0.0-2.0); EOS # 0.6 K/uL (0.0-0.7); EOS % 6.3 % (0.0-4.0); HEMOGLOBIN 11.4 g/dL (12.0-18.0); LYMPH # 1.8 K/uL (1.0-4.3); LYMPH % 19.7 % (20.0-40.0); MEAN CELL VOLUME 90.6 fL (80.0-94.0); MEAN CORPUSCULAR HEMOGLOBIN 30.9 pg (27.0-31.0); MEAN CORPUSCULAR HGB CONC 34.1 g/dL (33.0-37.0); MEAN PLATELET VOLUME 9.9 fL (7.2-11.7); MONO # 0.9 K/uL (0.0-0.8); MONO % 9.8 % (0.0-10.0); NEUT # 5.9 K/uL (1.8-7.0); NEUT % 63.9 % (50.0-75.0); RBC 3.69 Mil/uL (4.40-5.90); RED CELL DISTRIBUTION WIDTH 15.1 % (11.5-14.5); WHITE BLOOD COUNT 9.3 K/uL (4.8-10.8)
[2018-09-11 08:58] LABS: ALB/GLOB RATIO 1.1 (1.0-2.1); ALBUMIN 3.2 g/dL (3.5-5.0); CALCIUM 8.7 mg/dl (8.6-10.4)
[2018-09-11] MEDS ORDERED: Potassium Chloride 20 mEq ER Tab PO ONE (10:14)
[2018-09-11] MEDS: LamiVUDine 10 mg/ml Syringe PO SCH ×2 (11:00→11:02)
[2018-09-11] MEDS: Metoprolol Succinate 50 mg XL Tab PO SCH ×2 (11:01→17:15)
[2018-09-11 15:38] VITALS: RESP 20
--- NOTE | 2018-09-11 22:01 | CP.PCM.PN ---
Subjective - Date & Time of Evaluation Date of Evaluation: 09/09/18 Time of Evaluation: 07:40 - Subjective Subjective: dict Objective - Vital Signs/Intake and Output Vital Signs (last 24 hours): Temp Pulse Resp BP Pulse Ox 98.3 F 80 20 132/70 96 09/11/18 15:00 09/11/18 15:00 09/11/18 15:00 09/11/18 15:00 09/11/18 15:00 Intake and Output: 09/11/18 09/12/18 18:59 06:59 Intake Total 200 Balance 200 - Medications Medications: Current Medications Fosamprenavir Calcium (Lexiva) 700 mg PO BID [facility]; Protocol Last Admin: 09/11/18 17:15 Dose: 700 mg Gabapentin (Neurontin) 100 mg PO TID [facility] Last Admin: 09/11/18 17:15 Dose: 100 mg Hydrochlorothiazide (Hydrodiuril) 25 mg PO DAILY [facility] Last Admin: 09/11/18 11:01 Dose: 25 mg Lamivudine (Epivir) 100 mg PO DAILY [facility]; Protocol Last Admin: 09/11/18 11:00 Dose: 100 mg Losartan Potassium (Cozaar) 25 mg PO DAILY [facility] Last Admin: 09/11/18 11:01 Dose: 25 mg Metoprolol Succinate (Toprol Xl) 50 mg PO BID [facility] Last Admin: 09/11/18 17:15 Dose: 50 mg Pantoprazole Sodium (Protonix Inj) 40 mg IVP Q12H [facility] Last Admin: 09/11/18 17:15 Dose: 40 mg Rosuvastatin Calcium (Crestor) 5 mg PO HS [facility] Last Admin: 09/11/18 21:08 Dose: 5 mg Tamsulosin HCl (Flomax) 0.4 mg PO DAILY [facility] Last Admin: 09/11/18 11:02 Dose: 0.4 mg - Labs Labs: 09/11/18 08:28 09/11/18 08:28 PT 13.2 SECONDS (9.7-12.2) H 09/06/18 01:14 INR 1.2 09/06/18 01:14 APTT 26.7 SECONDS (21-34) 09/06/18 01:14
--- NOTE | 2018-09-11 22:02 | CP.PCM.PN ---
Subjective - Date & Time of Evaluation Date of Evaluation: 09/11/18 Time of Evaluation: 07:40 - Subjective Subjective: dict Objective - Vital Signs/Intake and Output Vital Signs (last 24 hours): Temp Pulse Resp BP Pulse Ox 98.3 F 80 20 132/70 96 09/11/18 15:00 09/11/18 15:00 09/11/18 15:00 09/11/18 15:00 09/11/18 15:00 Intake and Output: 09/11/18 09/12/18 18:59 06:59 Intake Total 200 Balance 200 - Medications Medications: Current Medications Fosamprenavir Calcium (Lexiva) 700 mg PO BID [facility]; Protocol Last Admin: 09/11/18 17:15 Dose: 700 mg Gabapentin (Neurontin) 100 mg PO TID [facility] Last Admin: 09/11/18 17:15 Dose: 100 mg Hydrochlorothiazide (Hydrodiuril) 25 mg PO DAILY [facility] Last Admin: 09/11/18 11:01 Dose: 25 mg Lamivudine (Epivir) 100 mg PO DAILY [facility]; Protocol Last Admin: 09/11/18 11:00 Dose: 100 mg Losartan Potassium (Cozaar) 25 mg PO DAILY [facility] Last Admin: 09/11/18 11:01 Dose: 25 mg Metoprolol Succinate (Toprol Xl) 50 mg PO BID [facility] Last Admin: 09/11/18 17:15 Dose: 50 mg Pantoprazole Sodium (Protonix Inj) 40 mg IVP Q12H [facility] Last Admin: 09/11/18 17:15 Dose: 40 mg Rosuvastatin Calcium (Crestor) 5 mg PO HS [facility] Last Admin: 09/11/18 21:08 Dose: 5 mg Tamsulosin HCl (Flomax) 0.4 mg PO DAILY [facility] Last Admin: 09/11/18 11:02 Dose: 0.4 mg - Labs Labs: 09/11/18 08:28 09/11/18 08:28 PT 13.2 SECONDS (9.7-12.2) H 09/06/18 01:14 INR 1.2 09/06/18 01:14 APTT 26.7 SECONDS (21-34) 09/06/18 01:14
--- NOTE | 2018-09-11 22:02 | CP.PCM.PN ---
Subjective - Date & Time of Evaluation Date of Evaluation: 09/10/18 Time of Evaluation: 07:40 - Subjective Subjective: dict Objective - Vital Signs/Intake and Output Vital Signs (last 24 hours): Temp Pulse Resp BP Pulse Ox 98.3 F 80 20 132/70 96 09/11/18 15:00 09/11/18 15:00 09/11/18 15:00 09/11/18 15:00 09/11/18 15:00 Intake and Output: 09/11/18 09/12/18 18:59 06:59 Intake Total 200 Balance 200 - Medications Medications: Current Medications Fosamprenavir Calcium (Lexiva) 700 mg PO BID [facility]; Protocol Last Admin: 09/11/18 17:15 Dose: 700 mg Gabapentin (Neurontin) 100 mg PO TID [facility] Last Admin: 09/11/18 17:15 Dose: 100 mg Hydrochlorothiazide (Hydrodiuril) 25 mg PO DAILY [facility] Last Admin: 09/11/18 11:01 Dose: 25 mg Lamivudine (Epivir) 100 mg PO DAILY [facility]; Protocol Last Admin: 09/11/18 11:00 Dose: 100 mg Losartan Potassium (Cozaar) 25 mg PO DAILY [facility] Last Admin: 09/11/18 11:01 Dose: 25 mg Metoprolol Succinate (Toprol Xl) 50 mg PO BID [facility] Last Admin: 09/11/18 17:15 Dose: 50 mg Pantoprazole Sodium (Protonix Inj) 40 mg IVP Q12H [facility] Last Admin: 09/11/18 17:15 Dose: 40 mg Rosuvastatin Calcium (Crestor) 5 mg PO HS [facility] Last Admin: 09/11/18 21:08 Dose: 5 mg Tamsulosin HCl (Flomax) 0.4 mg PO DAILY [facility] Last Admin: 09/11/18 11:02 Dose: 0.4 mg - Labs Labs: 09/11/18 08:28 09/11/18 08:28 PT 13.2 SECONDS (9.7-12.2) H 09/06/18 01:14 INR 1.2 09/06/18 01:14 APTT 26.7 SECONDS (21-34) 09/06/18 01:14
--- NOTE | 2018-09-12 01:55 | PN ---
DATE: 09/11/2018 SUBJECTIVE: The patient is afebrile. Bilateral knee pain. No nausea or vomiting. No active bleeding. PHYSICAL EXAMINATION: VITAL SIGNS: Blood pressure 142/71, pulse 74, respiratory rate 18, temperature 98.3. LUNGS: Clear. CARDIOVASCULAR SYSTEM: S1 and S2, regular. ABDOMEN: Soft. ASSESSMENT: 1. Gastrointestinal bleed, resolved. 2. Dehydration. 3. Osteoarthritis. PLAN: Tylenol. Gabapentin. Monitor the patient. Francisco Richards MD
[2018-09-12 06:37] LABS: BASO % 0.4 % (0.0-2.0); EOS # 0.5 K/uL (0.0-0.7); EOS % 5.3 % (0.0-4.0); HEMOGLOBIN 11.7 g/dL (12.0-18.0); LYMPH # 2.1 K/uL (1.0-4.3); LYMPH % 22.3 % (20.0-40.0); MEAN CELL VOLUME 92.3 fL (80.0-94.0); MEAN CORPUSCULAR HEMOGLOBIN 30.9 pg (27.0-31.0); MEAN CORPUSCULAR HGB CONC 33.4 g/dL (33.0-37.0); MEAN PLATELET VOLUME 9.8 fL (7.2-11.7); NEUT # 5.8 K/uL (1.8-7.0); RBC 3.8 Mil/uL (4.40-5.90); RED CELL DISTRIBUTION WIDTH 16.3 % (11.5-14.5); WHITE BLOOD COUNT 9.5 K/uL (4.8-10.8)
[2018-09-12 06:44] LABS: ALB/GLOB RATIO 1.3 (1.0-2.1); ALBUMIN 3.4 g/dL (3.5-5.0); CALCIUM 8.8 mg/dl (8.6-10.4)
--- NOTE | 2018-09-12 07:38 | PN ---
DATE: 09/12/2018 LOCATION: 565, bed A. SUBJECTIVE: This is an 83-year-old male seen and examined in rounds without any significant clinical changes with a complaint of bilateral thigh pain and tightness. No reported active bleeding. No nausea or vomiting this morning. The entire chart is reviewed including the most recent lab and radiology study results and today's lab showed low hemoglobin of 11.7 but normal white blood cells and platelet count with BUN of 32, creatinine 1.6, albumin 3.4, total protein 5.9. The official colonoscopy report, results still pending. PHYSICAL EXAMINATION: GENERAL: An 83-year-old male, awake, alert. VITAL SIGNS: Afebrile with pulse of 74, respiratory rate 20 to 22, blood pressure of 130/88. HEENT: Showed pale, dry oral mucous membrane. Nonicteric sclerae. LUNGS: Few scattered crepitation. Decreased air entry at bases. HEART: Positive S1 and S2. ABDOMEN: Soft with mild generalized tenderness. No mass or organomegaly. No rebound tenderness or guarding. EXTREMITIES: With evidence of muscle spasm and tenderness of both lower extremities but no clubbing, edema or cyanosis. NEUROLOGIC: No reported new neurological deficit, sensory or motor. IMPRESSION: 1. Recently reported gastrointestinal blood loss with anemia. 2. Colon polyp with polypoid colon mass lesion in the rectum, possibility of carcinoma was raised. 3. Re-exacerbation of peptic ulcer disease. 4. Diffuse diverticulosis by recent colonoscopy. 5. Poorly controlled diabetes mellitus, gradually improving. 6. Known history of human immunodeficiency virus. SUGGESTIONS: 1. Continue current management. 2. Follow up on pathology report. 3. Further recommendation to follow. Prem Hernandez MD
[2018-09-12 08:09] VITALS: BP 160/76; PULSE 73; TEMP 98.3; O2SAT 96
[2018-09-12] MEDS: LamiVUDine 10 mg/ml Syringe PO SCH (10:27)
[2018-09-12] MEDS: Metoprolol Succinate 50 mg XL Tab PO SCH (10:27)
--- NOTE | 2018-09-12 12:14 | CP.PCM.PN ---
Subjective - Date & Time of Evaluation Date of Evaluation: 09/12/18 Time of Evaluation: 09:00 - Subjective Subjective: seen on rounds in [facility] Objective - Vital Signs/Intake and Output Vital Signs (last 24 hours): Temp Pulse Resp BP Pulse Ox 98.3 F 73 20 160/76 H 96 09/12/18 07:08 09/12/18 07:08 09/12/18 07:08 09/12/18 07:08 09/12/18 07:08 Intake and Output: 09/12/18 09/12/18 06:59 18:59 Intake Total 200 Output Total 300 Balance -100 - Medications Medications: Current Medications Fosamprenavir Calcium (Lexiva) 700 mg PO BID [facility]; Protocol Last Admin: 09/12/18 10:24 Dose: 700 mg Gabapentin (Neurontin) 100 mg PO TID [facility] Last Admin: 09/12/18 10:24 Dose: 100 mg Hydrochlorothiazide (Hydrodiuril) 25 mg PO DAILY [facility] Last Admin: 09/12/18 10:24 Dose: 25 mg Lamivudine (Epivir) 100 mg PO DAILY [facility]; Protocol Last Admin: 09/12/18 10:27 Dose: 100 mg Losartan Potassium (Cozaar) 25 mg PO DAILY [facility] Last Admin: 09/12/18 10:25 Dose: 25 mg Metoprolol Succinate (Toprol Xl) 50 mg PO BID [facility] Last Admin: 09/12/18 10:27 Dose: 50 mg Pantoprazole Sodium (Protonix Inj) 40 mg IVP Q12H [facility] Last Admin: 09/12/18 05:43 Dose: 40 mg Rosuvastatin Calcium (Crestor) 5 mg PO HS [facility] Last Admin: 09/11/18 21:08 Dose: 5 mg Tamsulosin HCl (Flomax) 0.4 mg PO DAILY [facility] Last Admin: 09/12/18 10:25 Dose: 0.4 mg - Labs Labs: 09/12/18 06:17 09/12/18 06:17 PT 13.2 SECONDS (9.7-12.2) H 09/06/18 01:14 INR 1.2 09/06/18 01:14 APTT 26.7 SECONDS (21-34) 09/06/18 01:14 - Constitutional Appears: Non-toxic, No Acute Distress, Chronically Ill - Head Exam Head Exam: ATRAUMATIC, NORMAL INSPECTION, NORMOCEPHALIC - Eye Exam Eye Exam: EOMI, Normal appearance, PERRL Pupil Exam: NORMAL ACCOMODATION, PERRL - ENT Exam ENT Exam: Mucous Membranes Moist, Normal Exam - Neck Exam Neck Exam: Full ROM, Normal Inspection. absent: Lymphadenopathy - Respiratory Exam Respiratory Exam: Clear to Ausculation Bilateral, NORMAL BREATHING PATTERN - Cardiovascular Exam Cardiovascular Exam: REGULAR RHYTHM, +S1, +S2. absent: Murmur - GI/Abdominal Exam GI & Abdominal Exam: Soft, Normal Bowel Sounds. absent: Tenderness - Rectal Exam Rectal Exam: Deferred - Extremities Exam Extremities Exam: Full ROM, Normal Capillary Refill, Normal Inspection. absent: Joint Swelling, Pedal Edema - Back Exam Back Exam: NORMAL INSPECTION - Neurological Exam Neurological Exam: Alert, Awake, CN II-XII Intact, Normal Gait, Oriented x3 - Psychiatric Exam Psychiatric exam: Normal Affect, Normal Mood - Skin Skin Exam: Dry, Intact, Normal Color, Warm Assessment and Plan (1) HIV (human immunodeficiency virus infection) Status: Acute (2) Abdominal pain Status: Acute (3) Gastrointestinal hemorrhage Status: Acute (4) Renal insufficiency Status: Acute (5) Dehydration Status: Acute (6) Dizziness Status: Acute - Assessment and Plan (Free Text) Assessment: cont rx follow up with PMD
--- NOTE | 2018-09-12 15:27 | CP.PCM.PN ---
Subjective - Date & Time of Evaluation Date of Evaluation: 09/12/18 Time of Evaluation: 15:25 - Subjective Subjective: Patient is an 83yo M with PMH CAD, HIV, HTN, Hyperlipidemia, Arthritis presenting with hemoptysis. ICU consulted for GI bleed. Patient reports eating outside food on tuesday night and subsequently experiencing nausea and 3 episodes of bloody vomit that he described as bright red. He denies prior history of this. He denies blood in the stool prior to coming to hospital. He endorses history of acid reflux and abdominal pain. He denies chest pain, shortness of breath, fever, chills, sick contacts or recent travel. He currently denies any nausea or vomiting. Pt seen and examined and has no complaints at this time. Objective - Vital Signs/Intake and Output Vital Signs (last 24 hours): Temp Pulse Resp BP Pulse Ox 98.3 F 73 20 160/76 H 96 09/12/18 07:08 09/12/18 07:08 09/12/18 07:08 09/12/18 07:08 09/12/18 07:08 Intake and Output: 09/12/18 09/12/18 06:59 18:59 Intake Total 200 300 Output Total 300 Balance -100 300 - Medications Medications: Current Medications Fosamprenavir Calcium (Lexiva) 700 mg PO BID [facility]; Protocol Last Admin: 09/12/18 10:24 Dose: 700 mg Gabapentin (Neurontin) 100 mg PO TID [facility] Last Admin: 09/12/18 14:53 Dose: 100 mg Hydrochlorothiazide (Hydrodiuril) 25 mg PO DAILY [facility] Last Admin: 09/12/18 10:24 Dose: 25 mg Lamivudine (Epivir) 100 mg PO DAILY [facility]; Protocol Last Admin: 09/12/18 10:27 Dose: 100 mg Losartan Potassium (Cozaar) 25 mg PO DAILY [facility] Last Admin: 09/12/18 10:25 Dose: 25 mg Metoprolol Succinate (Toprol Xl) 50 mg PO BID [facility] Last Admin: 09/12/18 10:27 Dose: 50 mg Pantoprazole Sodium (Protonix Inj) 40 mg IVP Q12H [facility] Last Admin: 09/12/18 05:43 Dose: 40 mg Rosuvastatin Calcium (Crestor) 5 mg PO HS [facility] Last Admin: 09/11/18 21:08 Dose: 5 mg Tamsulosin HCl (Flomax) 0.4 mg PO DAILY [facility] Last Admin: 09/12/18 10:25 Dose: 0.4 mg - Labs Labs: 09/12/18 06:17 09/12/18 06:17 PT 13.2 SECONDS (9.7-12.2) H 09/06/18 01:14 INR 1.2 09/06/18 01:14 APTT 26.7 SECONDS (21-34) 09/06/18 01:14 Assessment and Plan - Assessment and Plan (Free Text) Assessment: Pt alert and oriented x3, lying in bed comfortably with no complaints. Resp even and unlabored. Abdomen soft non-tender. VSS, labs reviewed. EGD results determined severe divverticulosis with no evidence of bleeding. 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 Follow up in [address] Richards Follow up in 2-[address] Figueroa DIET: High Fiber Diet Resume all home medications New prescriptions Protonix 40mg BID Cozaar 25mg daily Activity as tolerated Call Dr. Richards or got to the emergancy room if symptoms return or worsen Discuss with patient at the bedside who agree and and verbalized understanding
--- NOTE | 2018-09-12 22:13 | CP.PCM.DIS ---
Provider - Provider Date of Admission: 09/06/18 01:48 Attending physician: Francisco Richards MD Consults: 09/06/18 14:30 Gastroenterology Consult Routine Comment: Consulting Provider: Prem Figueroa Consulting Physician: Prem Figueroa Reason for Consult: GI BLEED 09/06/18 18:28 Infectious Disease Consult Routine Comment: Consulting Provider: Serge Leonardo Consulting Physician: Serge Leonardo Reason for Consult: hiv 09/07/18 17:34 General Surgery Consult Routine Comment: Consulting Provider: Amaury Bailey Jr. Consulting Physician: Amaury Bailey Jr. Reason for Consult: for active bleed 09/07/18 17:35 Critical Care Consult Routine Comment: Consulting Provider: Julio Wills Consulting Physician: Julio Wills Reason for Consult: for active GI BLEED Time Spent in preparation of Discharge (in minutes): 35 Hospital Course - Lab Results Lab Results: Micro Results 09/09/18 18:13 Nose MRSA Culture - Final MRSA NOT DETECTED 09/07/18 07:43 Naris MRSA Culture (Admit) - Final MRSA NOT DETECTED Most Recent Lab Values WBC 9.5 K/uL (4.8-10.8) 09/12/18 06:17 RBC 3.80 Mil/uL (4.40-5.90) L 09/12/18 06:17 Hgb 11.7 g/dL (12.0-18.0) L 09/12/18 06:17 Hct 35.1 % (35.0-51.0) 09/12/18 06:17 MCV 92.3 fL (80.0-94.0) 09/12/18 06:17 MCH 30.9 pg (27.0-31.0) 09/12/18 06:17 MCHC 33.4 g/dL (33.0-37.0) 09/12/18 06:17 RDW 16.3 % (11.5-14.5) H 09/12/18 06:17 Plt Count 195 K/uL (130-400) 09/12/18 06:17 MPV 9.8 fL (7.2-11.7) 09/12/18 06:17 Neut % (Auto) 61.0 % (50.0-75.0) 09/12/18 06:17 Lymph % (Auto) 22.3 % (20.0-40.0) 09/12/18 06:17 Mckean % (Auto) 11.0 % (0.0-10.0) H 09/12/18 06:17 Eos % (Auto) 5.3 % (0.0-4.0) H 09/12/18 06:17 Baso % (Auto) 0.4 % (0.0-2.0) 09/12/18 06:17 Neut # (Auto) 5.8 K/uL (1.8-7.0) 09/12/18 06:17 Lymph # (Auto) 2.1 K/uL (1.0-4.3) 09/12/18 06:17 Mckean # (Auto) 1.0 K/uL (0.0-0.8) H 09/12/18 06:17 Eos # (Auto) 0.5 K/uL (0.0-0.7) 09/12/18 06:17 Baso # (Auto) 0.0 K/uL (0.0-0.2) 09/12/18 06:17 PT 13.2 SECONDS (9.7-12.2) H 09/06/18 01:14 INR 1.2 09/06/18 01:14 APTT 26.7 SECONDS (21-34) 09/06/18 01:14 Sodium 139 mmol/L (132-148) 09/12/18 06:17 Potassium 3.9 mmol/L (3.6-5.2) 09/12/18 06:17 Chloride 102 mmol/L (98-107) 09/12/18 06:17 Carbon Dioxide 27 mmol/L (22-30) 09/12/18 06:17 Anion Gap 14 (10-20) 09/12/18 06:17 BUN 32 mg/dL (9-20) H 09/12/18 06:17 Creatinine 1.6 mg/dL (0.8-1.5) H 09/12/18 06:17 Est GFR ( Amer) 50 09/12/18 06:17 Est GFR (Non-Af Amer) 41 09/12/18 06:17 POC Glucose (mg/dL) 134 mg/dL (65-110) H 09/07/18 06:35 Random Glucose 97 mg/dL (75-110) 09/12/18 06:17 Calcium 8.8 mg/dl (8.6-10.4) 09/12/18 06:17 Phosphorus 2.9 mg/dL (2.5-4.5) 09/09/18 04:20 Magnesium 1.8 mg/dL (1.6-2.3) 09/09/18 14:21 Total Bilirubin 0.5 mg/dL (0.2-1.3) 09/12/18 06:17 AST 20 U/L (17-59) 09/12/18 06:17 ALT 18 U/L (21-72) L 09/12/18 06:17 Alkaline Phosphatase 76 U/L (38-126) 09/12/18 06:17 Total Protein 5.9 g/dL (6.3-8.3) L 09/12/18 06:17 Albumin 3.4 g/dL (3.5-5.0) L 09/12/18 06:17 Globulin 2.6 gm/dL (2.2-3.9) 09/12/18 06:17 Albumin/Globulin Ratio 1.3 (1.0-2.1) 09/12/18 06:17 Urine Color Straw (YELLOW) 09/06/18 10:49 Urine Clarity Clear (Clear) 09/06/18 10:49 Urine pH 5.0 (5.0-8.0) 09/06/18 10:49 Ur Specific Wendel 1.012 (1.003-1.030) 09/06/18 10:49 Urine Protein Negative mg/dL (NEGATIVE) 09/06/18 10:49 Urine Glucose (UA) Normal mg/dL (Normal) 09/06/18 10:49 Urine Ketones Negative mg/dL (NEGATIVE) 09/06/18 10:49 Urine Blood Negative (NEGATIVE) 09/06/18 10:49 Urine Nitrate Negative (NEGATIVE) 09/06/18 10:49 Urine Bilirubin Negative (NEGATIVE) 09/06/18 10:49 Urine Urobilinogen Normal mg/dL (0.2-1.0) 09/06/18 10:49 Ur Leukocyte Esterase Neg Dioni/uL (Negative) 09/06/18 10:49 Urine WBC (Auto) < 1 /hpf (0-5) 09/06/18 10:49 Urine RBC (Auto) < 1 /hpf (0-3) 09/06/18 10:49 Stool Occult Blood Positive (NEGATIVE) H 09/06/18 01:34 Absolute Lymphs (Flow) 1874 Cells/mcL (850-3900) 09/07/18 08:20 % CD4 Cells 33 Percent (30-61) 09/07/18 08:20 Absolute CD4 Count 610 Cells/mcL (490-1740) 09/07/18 08:20 T-Help/Suppress Ratio 0.88 Ratio (0.86-5.00) 09/07/18 08:20 % CD8 Cells 37 Percent (12-42) 09/07/18 08:20 Absolute CD8 Count 696 Cells/mcL (180-1170) 09/07/18 08:20 HIV-1 Antibody Positive (Negative) H 09/07/18 10:26 HIV-1 RNA Qnt (RT-PCR) <1.30 not detected (Not Detected) 09/07/18 08:20 HIV-2 Antibody Negative (Negative) 09/07/18 10:26 HIV 1&2 Ag/Ab, 4th Gen Reactive (Nonreactive) H 09/07/18 10:26 HIV 1&2 Antibody Screen Reactive (NEGATIVE) 09/07/18 08:05 Blood Type AB POSITIVE 09/06/18 01:42 Blood Type Confirm AB POSITIVE 09/06/18 01:42 Antibody Screen Negative 09/06/18 01:42 Discharge Exam - Head Exam Head Exam: ATRAUMATIC, NORMAL INSPECTION, NORMOCEPHALIC Discharge Plan - Discharge Medications Prescriptions: Losartan [Cozaar] 25 mg PO DAILY 30 Days tab Pantoprazole Sodium [Protonix] 40 mg PO DAILY 30 Days ect - Follow Up Plan Condition: GUARDED Disposition: HOME/ ROUTINE Instructions: High Fiber Diet, Acute Abdomen (Belly Pain), Adult (DC), Acute Kidney Failure (DC), Losartan, Pantoprazole, Gastrointestinal Bleeding (DC) Additional Instructions: Follow up in [address] Richards Follow up in 2-[address] Figueroa Resume all home medications New prescriptions Protonix 40mg BID Cozaar 25mg daily Activity as tolerated Call Dr. Richards or got to the emergancy room if symptoms return or worsen Discuss with patient at the bedside who agree and and verbalized understanding Seguimiento en [address] Richards. Seguimiento en 2-[address] Figueroa. Reanudar todos los medicamentos caseros. Nuevas recetas Protonix 40 mg BID Cozaar 25 mg al da Actividad segn lo tolerado. Llame al Dr. Richards o vaya a la phillip de emergencias si los sntomas regresan o empeoran. Discuta con el paciente al lado de la cama que est de acuerdo y verbaliza la comprensinFollow up in [address] Richards Follow up in 2-[address] Figueroa Referrals: Prem Figueroa [Staff Provider] - Francisco Richards MD [Staff Provider] -
--- NOTE | 2018-09-13 05:02 | DS ---
DISCHARGE DIAGNOSES: Gastrointestinal bleed due to gastric erosions, hypertension, acquired immunodeficiency syndrome, hyperlipidemia, osteoarthritis, and peripheral neuropathy. HISTORY OF PRESENT ILLNESS: This is an 83-year-old male, well known to me with a history of acquired immunodeficiency syndrome, hypertension, hyperlipidemia, osteoarthritis, who came in because of abdominal pain, nausea, vomiting, and upper GI bleed with hematemesis, and then later on, the patient had melanotic stool. The patient was transferred to ICU. The patient's endoscopy showed erosive gastritis. The patient improved with proton pump inhibitor, blood transfusion, IV Pepcid, Carafate, and the patient is for discharge. We will abstain from taking any aspirin. He will be followed up closely. He is afebrile. Hemoglobin is 11.7, hematocrit 35.1, platelets are normal. SMA is normal. CONDITION UPON DISCHARGE: Stable. He will be followed up by me closely. Francisco Richards MD
== END 2018-09-12 15:40 | disposition home or self-care (01) | DRG 378 ==
LOC: C.ER 00:08 → C.5S 01:48 → C.9I 09-07 18:21 → C.5S 09-09 17:57
PROVIDERS: ADMIT Internal Medicine; ATTEND Internal Medicine
PROC: 0DB68ZX Excision of Stomach, Via Natural or Artificial Opening Endoscopic, Diagnostic (ICD-10-PCS; principal; 2018-09-07 11:10)
PROC: 0DBK8ZX Excision of Ascending Colon, Via Natural or Artificial Opening Endoscopic, Diagnostic (ICD-10-PCS; 2018-09-08)
PROC: 0DBP8ZX Excision of Rectum, Via Natural or Artificial Opening Endoscopic, Diagnostic (ICD-10-PCS; 2018-09-08)
DX: K29.71 Gastritis, unspecified, with bleeding (principal); B20 Human immunodeficiency virus [HIV] disease; D62 Acute posthemorrhagic anemia; E87.2 Acidosis; N17.9 Acute kidney failure, unspecified; K44.9 Diaphragmatic hernia without obstruction or gangrene; D50.0 Iron deficiency anemia secondary to blood loss (chronic); D72.829 Elevated white blood cell count, unspecified; E78.5 Hyperlipidemia, unspecified; E86.0 Dehydration; G89.29 Other chronic pain; I10 Essential (primary) hypertension; I25.10 Atherosclerotic heart disease of native coronary artery without angina pectoris; K21.0 Gastro-esophageal reflux disease with esophagitis; K57.90 Diverticulosis of intestine, part unspecified, without perforation or abscess without bleeding; K64.8 Other hemorrhoids; N40.0 Benign prostatic hyperplasia without lower urinary tract symptoms; Z95.1 Presence of aortocoronary bypass graft; E11.65 Type 2 diabetes mellitus with hyperglycemia; D12.2 Benign neoplasm of ascending colon; K62.1 Rectal polyp